=== PATIENT | male | born 1970 | race Caucasian/White ===

== ENCOUNTER 2019-04-18 15:55 | Emergency (ER) | payer OTHER, MEDICAID ==
[~2019-04-18] VITALS: Ht 165.1 cm; Wt 123.4 kg
[~2019-04-18 15:55] MED LIST: ASPI-404 PO; DICY20TA66 PO; FURO1TAB33; GLYB6TAB; LISI-711; MELA10TA PO; METO10TA3 PO; OMEP-337; PERCOT GT; POTA12PO2 PO; RANI150I IJ; TAMS0.4C36 PO
[2019-04-18] MEDS ORDERED: SODIUM CHLORIDE 0.9% 1,000 ML IV ONE ×2 (17:07)
[2019-04-18] MEDS ORDERED: InsuLIN REG 1unit/0.01ml Soln (100units/ml) SC ONE (17:15)
[2019-04-18 17:40] LABS: Basophils # (auto) 0.1 uL; Basophils % (auto) 1.1 % (0.0-2.0); Eosinophils # (auto) 0.2 uL; Eosinophils % (auto) 2.2 % (0.0-7.0); Hematocrit 47.6 % (41.0-53.0); Hemoglobin 15.8 g/dL (13.5-17.5); Lymphocytes # (auto) 2.4 uL; Lymphocytes % (auto) 24.5 % (10.0-50.0); Mean Corpuscular Hemoglobin 30.5 pg (28.0-32.0); Mean Corpuscular Hgb Conc. 33.2 g/dL (32.0-36.0); Mean Corpuscular Volume 91.8 fL (80.0-100.0); Monocytes # (auto) 0.7 uL; Monocytes % (auto) 6.8 % (0.0-12.0); Neutrophils # (auto) 6.4 uL; Neutrophils % (auto) 65.4 % (37.0-80.0); Nucleated Red Blood Cells % 0.1 %; Platelet Count (auto) 258 10^3/uL (140-450); Red Blood Cells 5.18 10^6/uL (4.5-5.90); White Blood Cell 9.8 10^3/uL (4.4-10.8)
[2019-04-18 17:57] LABS: INR 0.96 (0.9-1.15); Partial Thromboplastin Time 23.2 sec (23.64-32.05)
[2019-04-18 17:58] LABS: Albumin 3.9 g/dL (3.4-5.0); Anion Gap 11 (5-15); Blood Urea Nitrogen 17 mg/dL (7-18); Calcium 9.6 mg/dL (8.5-10.1); Carbon Dioxide 24 mmol/L (21-32); Chloride 102 mmol/L (98-107); Glucose 288 mg/dL (74-106); Lipase 132 U/L (73-393); Potassium 4.3 mmol/L (3.5-5.1); Sodium 137 mmol/L (136-145)
[2019-04-18 18:03] LABS: Alanine Aminotransferase 59 U/L (16-61); Alkaline Phosphatase 98 U/L (45-117); Aspartate Aminotransferase 35 U/L (15-37); Bilirubin, Total 0.6 mg/dL (0.2-1.0); GFR African American 89 mL/min; GFR Non-African American 73 mL/min; Total Protein 7.7 g/dL (6.4-8.2)
[2019-04-18 22:30] VITALS: BP 125/90
== END 2019-04-18 23:43 | disposition home or self-care (01) ==
LOC: ER 15:55
DX: E11.65 Type 2 diabetes mellitus with hyperglycemia (principal); N20.0 Calculus of kidney; I10 Essential (primary) hypertension; Z88.6 Allergy status to analgesic agent; Z79.899 Other long term (current) drug therapy
CPT/HCPCS: 36415; 71045; 74176; 80053; 82962; 83690; 84484; 85025; 85610; 85730; 96360; 96372; 99284; J1815; J7030

== ENCOUNTER 2022-04-07 21:25 | Emergency (ER) | payer MEDICAID, OTHER ==
[~2022-04-07] VITALS: Ht 165.1 cm; Wt 111.5 kg
[~2022-04-07 21:25] MED LIST changes: -ASPI-404 PO; +ASPI-543 PO; +ATOR40TA52 PO; -DICY20TA66 PO; -FURO1TAB33; -GLYB6TAB; +INSU100I43 SC; -LISI-711; +LISI40TA11 PO; -MELA10TA PO; -METO10TA3 PO; -OMEP-337; +PANC3000 PO; +PANT40TA2 PO; -PERCOT GT; -POTA12PO2 PO; -RANI150I IJ; -TAMS0.4C36 PO
[2022-04-08 01:46] VITALS: BP 141/74
== END 2022-04-08 01:46 | disposition home or self-care (01) ==
LOC: ER 21:25
DX: M25.562 Pain in left knee (principal); E11.9 Type 2 diabetes mellitus without complications; I10 Essential (primary) hypertension; Z90.89 Acquired absence of other organs; Z79.4 Long term (current) use of insulin; Z79.899 Other long term (current) drug therapy; Z88.6 Allergy status to analgesic agent
CPT/HCPCS: 73560

== ENCOUNTER 2022-06-25 01:03 | Emergency (ER) | payer OTHER, BC ==
[~2022-06-25] VITALS: Ht 165.1 cm; Wt 113.7 kg
[2022-06-25] MEDS ORDERED: ONDA-144 PO (04:49)
[2022-06-25] MEDS ORDERED: HYDR-4902 PO (04:49)
[2022-06-25 05:01] VITALS: BP 131/75
== END 2022-06-25 05:01 | disposition home or self-care (01) ==
LOC: ER 01:03
DX: M25.512 Pain in left shoulder (principal); I10 Essential (primary) hypertension; E11.9 Type 2 diabetes mellitus without complications; Z79.82 Long term (current) use of aspirin; Z79.4 Long term (current) use of insulin; Z79.899 Other long term (current) drug therapy; Z88.8 Allergy status to other drugs, medicaments and biological substances

== ENCOUNTER → 2022-12-30 | Outpatient (CLI) | payer OTHER ==
[~2022-12-30] MED LIST changes: +HYDR-4902 PO; -LISI40TA11 PO; +LISI40TA16 PO; +ONDA-144 PO
[2022-12-30 11:14] LABS: Basophils # (auto) 0 10 ^3/uL (0-0.2); Basophils % (auto) 0.3 % (0.0-2.0); Eosinophils # (auto) 0.2 10 ^3/uL (0-0.8); Hematocrit 43.1 % (41.0-53.0); Hemoglobin 14.5 g/dL (13.5-17.5); Lymphocytes # (auto) 1.7 10 ^3/uL (0.4-5.4); Mean Corpuscular Hemoglobin 30.3 pg (28.0-32.0); Mean Corpuscular Hgb Conc. 33.6 g/dL (32.0-36.0); Mean Corpuscular Volume 90.2 fL (80.0-100.0); Monocytes # (auto) 0.7 10 ^3/uL (0-1.3); Monocytes % (auto) 8.9 % (0.0-12.0); Neutrophils # (auto) 5.3 10 ^3/uL (1.6-8.6); Neutrophils % (auto) 66.8 % (37.0-80.0); Nucleated Red Blood Cells % 0.1 %; Red Blood Cells 4.78 10^6/uL (4.5-5.90); Red Cell Distribution Width 14.5 % (11.8-14.3); White Blood Cell 7.9 10^3/uL (4.4-10.8)
[2022-12-30 11:53] LABS: Free T4 (Free Thyroxine) 0.86 ng/dL (0.89-1.76)
[2022-12-30 11:54] LABS: Prostate Specific Antigen 0.4 ng/mL (0.0-4.0)
[2022-12-30 12:19] LABS: Potassium 3.9 mmol/L (3.5-5.1)
[2022-12-30 12:26] LABS: Albumin 4.1 g/dL (3.4-5.0); Calcium 8.7 mg/dL (8.5-10.1)
[2022-12-30 12:28] LABS: Bilirubin, Total 0.9 mg/dL (0.2-1.0); Total Protein 7.3 g/dL (6.4-8.2)
[2022-12-30 16:03] LABS: Urine Bacteria NONE SEEN /hpf (None Seen); Urine Blood Negative /uL (Negative); Urine Mucus FEW (None Seen); Urine Specific Gravity 1.034 (1.001-1.035); Urine WBC 1 /hpf (0 - 3)
[2022-12-31 14:55] LABS: Micro Albumin 18.5 mg/L (0-30.0)
== END | disposition home or self-care (01) ==
LOC: LAB 10:31
PROVIDERS: ATTEND Internal Medicine
DX: I70.0 Atherosclerosis of aorta (principal); I10 Essential (primary) hypertension; E11.69 Type 2 diabetes mellitus with other specified complication
CPT/HCPCS: 36415; 80053; 80061; 81001; 82043; 82306; 82570; 83036; 84153; 84439; 84443; 85025

== ENCOUNTER → 2023-01-07 | Outpatient (CLI) | payer OTHER | END | disposition home or self-care (01) | LOC: LAB 15:42 | PROVIDERS: ATTEND Internal Medicine | DX: E11.69 Type 2 diabetes mellitus with other specified complication (principal); I10 Essential (primary) hypertension; I70.0 Atherosclerosis of aorta | CPT/HCPCS: 82274 ==

== ENCOUNTER → 2023-05-28 | Outpatient (CLI) | payer OTHER | END | disposition home or self-care (01) | LOC: LAB 16:05 | PROVIDERS: ATTEND Family Medicine | DX: L82.1 Other seborrheic keratosis (principal) | CPT/HCPCS: 88302 ==

== ENCOUNTER 2023-08-03 03:12 | Emergency (ER) | payer OTHER ==
[~2023-08-03] VITALS: Ht 165.1 cm; Wt 113.0 kg
[2023-08-03] MEDS: ALBUTEROL SULF 2.5 MG/0.5ML(0.5%) NEB SOLN NEB ONE (03:49)
[2023-08-03] MEDS: IPRATROPIUM BROM 0.5 MG/2.5ML INH SOL NEB ONE (03:49)
[2023-08-03 04:08] LABS: Basophils # (auto) 0 10 ^3/uL (0-0.2); Basophils % (auto) 0.5 % (0.0-2.0); Eosinophils # (auto) 0.3 10 ^3/uL (0-0.8); Eosinophils % (auto) 3.1 % (0.0-7.0); Hematocrit 41.7 % (41.0-53.0); Hemoglobin 13.9 g/dL (13.5-17.5); Lymphocytes % (auto) 24.9 % (10.0-50.0); Mean Corpuscular Hemoglobin 29.7 pg (28.0-32.0); Mean Corpuscular Hgb Conc. 33.4 g/dL (32.0-36.0); Mean Corpuscular Volume 88.9 fL (80.0-100.0); Monocytes # (auto) 0.6 10 ^3/uL (0-1.3); Monocytes % (auto) 7.8 % (0.0-12.0); Neutrophils # (auto) 5.2 10 ^3/uL (1.6-8.6); Neutrophils % (auto) 63.7 % (37.0-80.0); Nucleated Red Blood Cells % 0.1 %; Red Blood Cells 4.69 10^6/uL (4.5-5.90); White Blood Cell 8.2 10^3/uL (4.4-10.8)
[2023-08-03 04:19] LABS: Chloride 104 mmol/L (98-107); Sodium 138 mmol/L (136-145)
[2023-08-03 04:20] LABS: Anion Gap 8 (5-15); Calcium 9.3 mg/dL (8.7-10.4); Carbon Dioxide 26 mmol/L (20-30)
[2023-08-03 04:25] LABS: BUN/Creatinine Ratio 7.4 (10.0-20.0); Blood Urea Nitrogen 6 mg/dL (9-23); Glucose 266 mg/dL (74-106)
[2023-08-03] MEDS ORDERED: PRED20TA2 PO (05:53)
[2023-08-03] MEDS ORDERED: ALBU0.084 NEB (05:53)
[2023-08-03] MEDS ORDERED: ALBU108A5 IN (05:53)
[2023-08-03 06:00] VITALS: BP 123/89; PULSE 74; RESP 14; TEMP 98.1; O2SAT 96
== END 2023-08-03 06:17 | disposition home or self-care (01) ==
LOC: ER 03:12
DX: R06.00 Dyspnea, unspecified (principal); R05.9 Cough, unspecified; I10 Essential (primary) hypertension; E11.9 Type 2 diabetes mellitus without complications; Z88.8 Allergy status to other drugs, medicaments and biological substances; Z79.899 Other long term (current) drug therapy
CPT/HCPCS: 36415; 71045; 80048; 83880; 84484; 85025; 93005; 94640; 99285; J7644

== ENCOUNTER → 2023-12-16 | Outpatient (CLI) | payer OTHER ==
[~2023-12-16] MED LIST changes: +ALBU0.084 NEB; +ALBU108A5 IN; +PRED20TA2 PO
[2023-12-16 07:24] LABS: Urine Bacteria None Seen /hpf (None Seen)
[2023-12-16 07:27] LABS: Basophils # (auto) 0.1 10 ^3/uL (0-0.2); Basophils % (auto) 0.8 % (0.0-2.0); Eosinophils # (auto) 0.2 10 ^3/uL (0-0.8); Hematocrit 46.6 % (41.0-53.0); Hemoglobin 15.6 g/dL (13.5-17.5); Lymphocytes # (auto) 1.8 10 ^3/uL (0.4-5.4); Lymphocytes % (auto) 19.7 % (10.0-50.0); Mean Corpuscular Hemoglobin 29.9 pg (28.0-32.0); Mean Corpuscular Hgb Conc. 33.4 g/dL (32.0-36.0); Mean Corpuscular Volume 89.4 fL (80.0-100.0); Monocytes # (auto) 0.7 10 ^3/uL (0-1.3); Monocytes % (auto) 7.5 % (0.0-12.0); Neutrophils # (auto) 6.2 10 ^3/uL (1.6-8.6); Nucleated Red Blood Cells % 0.1 %; Red Blood Cells 5.21 10^6/uL (4.5-5.90); Red Cell Distribution Width 13.5 % (11.8-14.3); White Blood Cell 8.9 10^3/uL (4.4-10.8)
[2023-12-16 07:45] LABS: Urine Blood Negative /uL (Negative); Urine Clarity Clear (Clear); Urine Color Light-Yellow (Yellow); Urine Protein, UAD Negative (Negative); Urine Specific Gravity 1.035 (1.001-1.035); Urine Urobilinogen Normal (Negative); Urine WBC 1 /hpf (0 - 3)
[2023-12-16 07:55] LABS: Alanine Aminotransferase 53 U/L (7-40); Albumin 4.7 g/dL (3.2-4.8); Alkaline Phosphatase 82 U/L (46-116); Anion Gap 5 (5-15); Aspartate Aminotransferase 28 U/L (13-40); BUN/Creatinine Ratio 9.8 (10.0-20.0); Blood Urea Nitrogen 9 mg/dL (9-23); Calcium 9.6 mg/dL (8.5-10.1); Carbon Dioxide 28 mmol/L (20-30); Chloride 105 mmol/L (98-107); Glucose 236 mg/dL (74-106); LDL Cholesterol 39 mg/dL (< 100); Potassium 4.3 mmol/L (3.5-5.1); Sodium 138 mmol/L (136-145); Triglycerides 236 mg/dL (< 150)
[2023-12-16 07:56] LABS: Bilirubin, Total 0.8 mg/dL (0.2-1.0); Cholesterol 145 mg/dL (< 200); HDL Cholesterol 34 mg/dL (40-59); Total Protein 6.8 g/dL (5.7-8.2)
[2023-12-16 08:57] LABS: Prostate Specific Antigen 0.27 ng/mL (0.0-4.0)
[2023-12-16 09:02] LABS: Free T4 (Free Thyroxine) 1.12 ng/dL (0.89-1.76)
== END | disposition home or self-care (01) ==
LOC: LAB 07:08
PROVIDERS: ATTEND Internal Medicine
DX: Z12.5 Encounter for screening for malignant neoplasm of prostate (principal); E11.65 Type 2 diabetes mellitus with hyperglycemia; Z11.59 Encounter for screening for other viral diseases
CPT/HCPCS: 36415; 80053; 80061; 81001; 83036; 84153; 84439; 84443; 85025; 86803

== ENCOUNTER → 2024-01-31 | Outpatient (CLI) | payer OTHER ==
[2024-01-31 07:54] LABS: Alanine Aminotransferase 39 U/L (7-40); Albumin 4.4 g/dL (3.2-4.8); Alkaline Phosphatase 77 U/L (46-116); Anion Gap 7 (5-15); Aspartate Aminotransferase 14 U/L (13-40); Blood Urea Nitrogen 9 mg/dL (9-23); Calcium 9.5 mg/dL (8.7-10.4); Carbon Dioxide 25 mmol/L (20-30); Chloride 107 mmol/L (98-107); Glucose 122 mg/dL (74-106); Potassium 3.8 mmol/L (3.5-5.1); Sodium 139 mmol/L (136-145)
[2024-01-31 07:55] LABS: Bilirubin, Total 0.8 mg/dL (0.2-1.0); Total Protein 6.3 g/dL (5.7-8.2)
== END | disposition home or self-care (01) ==
LOC: LAB 07:06
PROVIDERS: ATTEND Internal Medicine
DX: I10 Essential (primary) hypertension (principal); E11.65 Type 2 diabetes mellitus with hyperglycemia; E66.01 Morbid (severe) obesity due to excess calories
CPT/HCPCS: 36415; 80053

== ENCOUNTER → 2024-05-29 | Outpatient (CLI) | payer OTHER ==
[2024-05-29 09:58] LABS: Creatinine, Urine 177.64 mg/dL (30.0-125.0)
[2024-05-29 10:07] LABS: Alanine Aminotransferase 26 U/L (7-40); Albumin 4.7 g/dL (3.2-4.8); Alkaline Phosphatase 85 U/L (46-116); Anion Gap 11 (5-15); Aspartate Aminotransferase 11 U/L (13-40); BUN/Creatinine Ratio 12.8 (10.0-20.0); Bilirubin, Total 0.7 mg/dL (0.2-1.0); Blood Urea Nitrogen 11 mg/dL (9-23); Calcium 10.2 mg/dL (8.7-10.4); Carbon Dioxide 27 mmol/L (20-31); Chloride 104 mmol/L (98-107); Cholesterol 107 mg/dL (< 200); Glucose 117 mg/dL (74-106); HDL Cholesterol 38 mg/dL (40-59); LDL Cholesterol 30 mg/dL (< 100); Potassium 3.9 mmol/L (3.5-5.1); Sodium 142 mmol/L (136-145); Total Protein 6.8 g/dL (5.7-8.2); Triglycerides 175 mg/dL (< 150)
== END | disposition home or self-care (01) ==
LOC: LAB 08:41
PROVIDERS: ATTEND Internal Medicine
DX: E78.2 Mixed hyperlipidemia (principal); E11.69 Type 2 diabetes mellitus with other specified complication
CPT/HCPCS: 36415; 80053; 80061; 82043; 82570; 83036

== ENCOUNTER 2024-10-19 21:36 | Inpatient (IN) | payer OTHER ==
[~2024-10-19] VITALS: Ht 165.1 cm; Wt 117.1 kg
--- NOTE | 2024-10-19 21:52 | ED.PDOC ---
GI ASSESSMENT HPI Comments 57-year-old male with a history of hypertension, diabetes, dyslipidemia, pancreatitis and chronic pain brought in by family for evaluation of upper abdominal pain for the last 3 days, associated with nausea, vomiting and copious watery diarrhea. He states he is currently not tolerating p.o. fluids. He denies any fever, chest pain, shortness a breath or urinary symptoms. He denies recent use of antibiotics. Time Seen by MD: 21:45 Primary Care Provider: ELDA Reviewed Notes: Nurses Notes, Medications, Allergies Allergies: Coded Allergies: Cephalexin (Verified Allergy, 01/14/12) Home Meds Active Scripts Prednisone (Prednisone) 20 Mg Tab, 60 MG PO DAILY for 7 Days, #21 MG Prov:GONZÁLEZ REAL DO 08/03/23 Albuterol Sulfate (Albuterol Sulfate Hfa) 108 Mcg/Act Aer, 108 MCG IN Q2HP PRN, #1 AER Prov:GONZÁLEZ REAL DO 08/03/23 Albuterol Sulfate (Albuterol Sulfate) 0.083 % Neb, 1 VIAL NEB Q4HPRN PRN, #50 VIAL Prov:GONZÁLEZ REAL DO 08/03/23 Ondansetron (Zofran) 4 Mg Tab, 1 TAB PO Q8HR PRN, #10 TAB 0 Refills Prov:LIAT CAGE 06/25/22 Hydrocodone-Acetaminophen (Hydrocodone Bitartrate/AC 5-325 mg) 1 Tab Tab, 1 TAB PO Q4HPRN PRN, #10 TAB 0 Refills Prov:LIAT CAGE 06/25/22 Reported Medications Insulin Lispro (Insulin Lispro) 100 Unit/Ml Inj, 100 UNIT SC TID, INJ 06/10/19 Pantoprazole Sodium Sesquihydr (Protonix) 40 Mg Tab, 40 MG PO DAILY, #30 TAB 06/10/19 Atorvastatin Calcium (ATORVASTATIN CALCIUM) 40 Mg Tab, 40 MG PO DAILY, TAB 06/10/19 Lisinopril (Lisinopril) 40 Mg Tab, 40 MG PO BID for 30 Days, MG 06/10/19 Pancreatic Enzymes (CREON) 3,000 Unit Cap, 28565 UNIT PO TIDWMEALS, CAP 06/10/19 Aspirin (Aspir-Low) 81 Mg Tab, 81 MG PO DAILY for 30 Days, MG 12/22/13 Information Source: Patient Mode of Arrival: Ambulatory Timing: Days Duration: Since onset, Days Prehospital treatment: None Quality: Aching Vomitus: Bilious Stool: Loose Severity: Moderate Recent: None Recent Hx of: Diabetes Pain Location: Epigastric Associated sign and symptoms: Nausea, Vomiting, Diarrhea, Abdominal Pain Past Medical History PAST MEDICAL HISTORY: DM, High Lipids, HTN Past Medical History (Other): Pancreatitis, chronic back pain Surgical History (Other): Lower Back Sx Family History Family History: Reviewed,noncontributory to illness, Unknown Social History Smoker: Non-Smoker Alcohol: Denies ETOH Use Drugs: Denies Drug Use Lives In: Home Constitutional: denies: chills, diaphoresis, fatigue, fever, malaise, sweats, weakness, others EENTM: denies: blurred vision, double vision, ear bleeding, ear discharge, ear drainage, ear pain, ear ringing, eye pain, eye redness, hearing loss, mouth pain, mouth swelling, nasal discharge, nose bleeding, nose congestion, nose pain, photophobia, tearing, throat pain, throat swelling, voice changes, others Respiratory: denies: cough, hemoptysis, orthopnea, SOB at rest, shortness of breath, SOB with excertion, stridor, wheezing, others Cardiovascular: denies: chest pain, dizzy spells, diaphoresis, Dyspnea on exertion, edema, irregular heart beat, left arm pain, lightheadedness, palpitations, PND, syncope, others Gastrointestinal: reports: abdominal pain, diarrhea, nausea, vomiting; denies: abdomen distended, blood streaked bowels, constipated, dysphagia, difficulty swallowing, hematemesis, melena, poor appetite, poor fluid intake, rectal bleeding, rectal pain, others Genitourinary: denies: burning, dysuria, flank pain, frequency, hematuria, incontinence, penile discharge, penile sore, pain, testicle pain, testicle swell ing, urgency, others Neurological: denies: dizziness, fainting, headache, left sided numbness, left sided weakness, numbness, paresthesia, pre-existing deficit, right sided numbness, right sided weakness, seizure, speech problems, tingling, tremors, weakness, others Musculoskeletal: denies: back pain, gout, joint pain, joint swelling, muscle pain, muscle stiffness, neck pain, others Integumetry: denies: bruises, change in color, change in hair/nails, dryness, laceration, lesions, lumps, rash, wounds, others Allergic/Immunocompromised: denies: Difficulty Healing, Frequent Infections, Hives, Itching, others Hematologic/Lymphatic: denies: anemia, blood clots, easy bleeding, easy bruising, swollen glands, others Endocrine: denies: excessive hunger, excessive sweating, excessive thirst, excessive urination, flushing, intolerance to cold, intolerance to heat, unexplained weight gain, unexplained weight loss, others Psychiatric: denies: anxiety, bipolar disorder, depression, hopeless, panic disorder, schizophrenia, sleepless, suicidal, others All Other Systems: Reviewed and Negative Physical Exam General Appearance: Moderate Distress, Obese HEENT: Other (Pupils and face symmetric. Moist mucous membranes.) Neck: Full Range of Motion, Normal Inspection Respiratory: Lungs Clear, No Accessory Muscle Use, No Respiratory Distress, Normal Breath Sounds Cardiovascular: No Edema, No JVD, Regular Rate/Rhythm Breast Exam: Deferred Gastrointestinal: Epigastric, LUQ, RUQ, Soft, Tenderness Genitalia: Deferred Pelvic: Deferred Rectal: Deferred Extremities: Normal inspection, Normal range of motion, Non-tender, No pedal edema Neurologic: Alert (Oriented x4), Normal Affect, Normal Mood, Other (Ambulatory without difficulty) Cerebellar Function: NOT DONE Reflexes: NOT DONE Skin: Dry, Normal Color, Warm Lymphatic: NOT DONE Was a procedure done? Was a procedure done?: No GI differential Dx Differential Diagnosis: Cholangitis, Cholecystitis, Diverticular disease, Esophagitis, Gastritis/PUD, Gastroenteritis, Inflammatory BD, Ischemic Bowel, Pancreatitis, UTI, Dehydration, Diabetes/ DKA, Electrolyte Imbalance, Food Poisoning, Bacterial, Viral, Hypovolemia, Stress Ulcer X-Ray, Labs, Meds, VS Vital Signs Date Time Temp Pulse Resp B/P (MAP) Pulse Ox O2 Delivery O2 Flow Rate FiO2 10/19/24 22:39 74 20 96 Room Air* 0 21 10/19/24 22:39 98.9 74 20 147/97 (114) 96 98.9 10/19/24 22:37 74 20 147/97 10/19/24 21:47 98.9 74 20 147/97 (114) 96 98.9 Lab Test 10/19/24 21:52 Range/Units White Blood Count 9.3 4.4-10.8 10^3/uL Red Blood Count 5.04 4.5-5.90 10^6/uL Hemoglobin 15.5 13.5-17.5 g/dL Hematocrit 44.6 41.0-53.0 % Mean Corpuscular Volume 88.4 80.0-100.0 fL Mean Corpuscular Hemoglobin 30.7 28.0-32.0 pg Mean Corpuscular Hemoglobin Concent 34.7 32.0-36.0 g/dL Red Cell Distribution Width 13.2 11.8-14.3 % Platelet Count 257 140-450 10^3/uL Mean Platelet Volume 7.5 6.9-10.8 fL Neutrophils (%) (Auto) 64.7 37.0-80.0 % Lymphocytes (%) (Auto) 25.8 10.0-50.0 % Monocytes (%) (Auto) 6.5 0.0-12.0 % Eosinophils (%) (Auto) 2.1 0.0-7.0 % Basophils (%) (Auto) 0.9 0.0-2.0 % Neutrophils # (Auto) 6.0 1.6-8.6 10 ^3/uL Lymphocytes # (Auto) 2.4 0.4-5.4 10 ^3/uL Monocytes # (Auto) 0.6 0-1.3 10 ^3/uL Eosinophils # (Auto) 0.2 0-0.8 10 ^3/uL Basophils # (Auto) 0.1 0-0.2 10 ^3/uL Nucleated Red Blood Cells 0.1 % Sodium Level 141 136-145 mmol/L Potassium Level 3.9 3.5-5.1 mmol/L Chloride Level 105 98-107 mmol/L Carbon Dioxide Level 27 20-31 mmol/L Anion Gap 9 5-15 Blood Urea Nitrogen 7 L 9-23 mg/dL Creatinine 0.72 0.700-1.30 mg/dL Glomerular Filtration Rate Calc 108 >90 mL/min BUN/Creatinine Ratio 9.7 L 10.0-20.0 Serum Glucose 126 H 74-106 mg/dL Lactic Acid Level 1.2 0.4-2.0 mmol/L Calcium Level 10.0 8.7-10.4 mg/dL Total Bilirubin 0.5 0.2-1.0 mg/dL Aspartate Amino Transferase (AST) 21 13-40 U/L Alanine Aminotransferase (ALT) 58 H 7-40 U/L Alkaline Phosphatase 81 46-116 U/L Troponin I High Sensitivity 4 </=54 ng/L Total Protein 6.8 5.7-8.2 g/dL Albumin 4.5 3.2-4.8 g/dL Lipase 331 H 12-53 U/L Current Medications Medications (Trade) Dose Ordered Sig/Dulce Route Start Time Stop Time Status Last Admin Sodium Chloride 2,000 ml @ 1,000 mls/hr Q2H ONCE IV 10/19/24 22:00 10/19/24 23:59 10/19/24 22:37 Ondansetron HCl (Zofran) 4 mg ONCE ONCE IV 10/19/24 22:00 10/19/24 22:01 DC 10/19/24 22:35 Pantoprazole Sodium (Protonix) 40 mg ONCE ONCE IV 10/19/24 22:00 10/19/24 22:01 DC 10/19/24 22:35 Morphine Sulfate 4 mg ONCE ONCE IV 10/19/24 22:00 10/19/24 22:01 DC 10/19/24 22:37 X-Ray, Labs, Meds, VS Comment 54-year-old male with a history of hypertension, diabetes, dyslipidemia and pancreatitis brought in by family complaining of abdominal pain, nausea, vomiting and diarrhea Vitals remarkable for BP 147/97 Exam remarkable for epigastric and bilateral upper quadrant tenderness to palpation Rhythm strip independently interpreted by me: Sinus rhythm, rate 74, no ectopy. CT abdomen and pelvis unremarkable CBC normal, CMP unremarkable, lipase 331, troponin negative, UA pending Patient treated with the following in the ED: 1 L 0.9 normal saline IV bolus, morphine 4 mg IV, Zofran 4 mg IV, Protonix 40 mg IV, Dilaudid 1 mg IV On re-evaluation, patient states pain has not improved with morphine. IV Dilaudid was ordered. Vitals were stable. Plan is to admit the patient for pain and emesis control and GI evaluation. Time of 1ST Reevaluation: 22:15 Reevaluation 1ST: Unchanged Patient Education/Counseling: Diagnosis, Treatment, Prognosis Family Education/Counseling: No Family Present Departure 1 Departure Time of Disposition: 23:01 Impression: Primary Impression: Acute pancreatitis Qualified Codes: K85.90 - Acute pancreatitis without necrosis or infection, unspecified Disposition: 09 ADMITTED INPATIENT Admit to: Med Surg Condition: Guarded Critical Care Note Critical Care Time?: No Stability Stability form required: No Heart Score Heart Score: Heart Score Response (Comments) Value History N/A 0 EKG N/A 0 Age N/A 0 Risk Factors N/A 0 Troponin N/A 0 Total 0 I personally scribed for MINNA ELKINS MD ([email or web address]) on 10/19/24 at 21:52. Electronically submitted by Cassius Scott ([email or web address]). MINNA ELKINS MD Oct 19, 2024 21:52
[2024-10-19 22:02] LABS: Basophils # (auto) 0.1 10 ^3/uL (0-0.2); Basophils % (auto) 0.9 % (0.0-2.0); Eosinophils # (auto) 0.2 10 ^3/uL (0-0.8); Eosinophils % (auto) 2.1 % (0.0-7.0); Hematocrit 44.6 % (41.0-53.0); Hemoglobin 15.5 g/dL (13.5-17.5); Lymphocytes # (auto) 2.4 10 ^3/uL (0.4-5.4); Lymphocytes % (auto) 25.8 % (10.0-50.0); Mean Corpuscular Hemoglobin 30.7 pg (28.0-32.0); Mean Corpuscular Hgb Conc. 34.7 g/dL (32.0-36.0); Mean Corpuscular Volume 88.4 fL (80.0-100.0); Monocytes # (auto) 0.6 10 ^3/uL (0-1.3); Monocytes % (auto) 6.5 % (0.0-12.0); Neutrophils % (auto) 64.7 % (37.0-80.0); Nucleated Red Blood Cells % 0.1 %; Platelet Count (auto) 257 10^3/uL (140-450); Red Blood Cells 5.04 10^6/uL (4.5-5.90); Red Cell Distribution Width 13.2 % (11.8-14.3); White Blood Cell 9.3 10^3/uL (4.4-10.8)
[2024-10-19 22:21] LABS: Albumin 4.5 g/dL (3.2-4.8); Alkaline Phosphatase 81 U/L (46-116); Anion Gap 9 (5-15); Aspartate Aminotransferase 21 U/L (13-40); BUN/Creatinine Ratio 9.7 (10.0-20.0); Carbon Dioxide 27 mmol/L (20-31); Chloride 105 mmol/L (98-107); Potassium 3.9 mmol/L (3.5-5.1); Sodium 141 mmol/L (136-145); Total Protein 6.8 g/dL (5.7-8.2)
[2024-10-19 22:22] LABS: Bilirubin, Total 0.5 mg/dL (0.2-1.0)
--- NOTE | 2024-10-19 22:31 | DVH ---
Exam: CT CT AB PEL WO CON-NO ORAL OR IV History: upper/mid abd pain, n/v/d Comparison Study: None Technique: Multidetector spiral CT of the abdomen was performed from lung bases to pubic symphysis. Imaging was performed without IV contrast. Axial, coronal and sagittal multiplanar reformats were ob tained from the axial data set by the technologist. Radiation Dose : 1. Abdomen/Pelvis: CTDIvol mGy, DLP mGy*cm. Findings: Evaluation of solid organs is limited due to lack of intravenous contrast use. Lung Bases: No abnormality demonstrated. Liver: Liver is normal in size. No focal lesions noted. Gallbladder and Biliary Tree: No abnormality demonstrated. Spleen: No abnormality demonstrated. Pancreas: No abnormality demonstrated. Adrenal Glands: No abnormality demonstrated. Kidneys: Two small nonobstructing calculi noted in the lower pole of the right kidney. Probable small bilateral renal cysts. No hydroureteronephrosis. Bladder: Grossly unremarkable for degree of distention. Bowel: Stomach appears grossly unremarkable. No abnormally dilated or thick-walled loops of large or small bowel noted. Appendix appears unremarkable. Ascites: Absent Lymphadenopathy: No evidence of lymphadenopathy. Abdominal Wall and Mesentery: Unremarkable. Vasculature: Unremarkable given lack of intravenous contrast. Pelvic Organs: Unremarkable Musculoskeletal: No bony lesions or fracture. S/p laminotomies at L4 and L5 and interbody fusion at L4-L5 and L5-S1. No spinal canal stenosis. IMPRESSION: No acute abdominal or pelvic findings. Radiation optimization: All CT scans at this facility use at least one of these dose optimization kyra hniques: automated exposure control mA and/or kV adjustment per patient size (includes targeted exam s where dose is matched to clinical indication) or iterative reconstruction.
[2024-10-19] MEDS: PANTOPRAZOLE 40 MG/10 ML VIAL INJ IV ONE (22:35)
[2024-10-19] MEDS: ONDANSETRON HCL 4 MG/2 ML VIAL IV ONE (22:35)
[2024-10-19] MEDS: MORPHINE SULFATE 4 MG/ML SYR/VIAL IV ONE (22:37)
[2024-10-19] MEDS: SODIUM CHLORIDE 0.9% 2,000 ML IV ONE (22:37)
[2024-10-19 22:39] VITALS: PULSE 74; RESP 20; O2SAT 96
[2024-10-19 22:58] LABS: Alanine Aminotransferase 58 U/L (7-40); Blood Urea Nitrogen 7 mg/dL (9-23); Glucose 126 mg/dL (74-106); Lipase 331 U/L (12-53)
[2024-10-20] VITALS (9 sets, daily range): BP systolic 115–145; BP diastolic 74–88; PULSE 53–64; RESP 15–20; TEMP 97.8–98.7; O2SAT 95–97
[2024-10-20] MEDS ORDERED: DEXTROSE (50%) 50ML SYRG IV PRN (00:15)
--- NOTE | 2024-10-20 00:27 | DVHHPRES ---
History of Present Illness Resident Creating Document: VASU LUNDBERG RESIDENT History of Present Illness Mr Rajiv year old male with past medical history of chronic pancreatitis secondary to medication (Viberzi/eluxadoline) on Creon, Diabetes mellitus type 2 on insulin, disc herniation, right shoulder pain, and hypertension presented to the ER with a chief complaint of abdominal pain, and diarrhea for the past 10 days. Patient was seen in the urgent care 10 days back due to right shoulder pain, later developed nausea and vomiting with fever and chills at home. Patient's was also experiencing the same symptoms. Patient got better in a couple of days and later started developing abdominal pain which is diffuse along with diarrhea which is watery, foamy and floaty with rotten smell, he is having more than 10 episodes of diarrhea in a day. Patient can not keep solids or liquids food down. Associated symptoms include nausea. Denies any blood in vomitus or stool. Reports compliance with Creon. Past medical history:chronic pancreatitis secondary to medication (Viberzi/eluxadoline) on Creon, Diabetes mellitus type 2 on insulin, disc herniation, right shoulder pain, and hypertension Home medications: Creon, lisinopril 40 mg b.i.d., atorvastatin Social history: Lives with . Quit smoking more than 15 years back, denies drinking or drug use PCP Dr. Hou Patient seen and examined in the ER, present. Family History: None Smoke: Quit ALCOHOL: none Drugs: None Lives: with Family Review of Systems Constitutional: Yes: Fever, Chills, Weakness Respiratory: Cough Gastrointestinal: Nausea, Vomiting, Abdominal Pain, Diarrhea Musculoskeletal: neck pain, shoulder pain Allergies: Coded Allergies: Cephalexin (Verified Allergy, 01/14/12) Exam Vital Signs Vital Signs Date Time Temp Pulse Resp B/P (MAP) Pulse Ox O2 Delivery O2 Flow Rate FiO2 10/19/24 22:39 74 20 96 Room Air* 0 21 10/19/24 22:39 98.9 147/97 (114) 98.9 Exam Obese male patient lying in bed, in no acute distress General: Obese, afebrile, palor, mucosae are moist Cardiovascular: Regular S1 and S2. No murmurs, gallops or rubs. No JVD elevation. Bilateral 1+ pedal edema Respiratory: Normal B/L air entry on room air. Clear lung sounds on auscultation Abdomen: Soft, diffusely tender, bloated, normoactive bowel sounds, no rebound tenderness, no organomegaly, no masses Genitourinary: Deferred MSK/skin: Mobilizes 4 limbs. Skin is dry and warm. Can not abduct right arm more than 90. Neurological: No motor, no sensitive deficits, normal speech. Pupils are isocoric and reactive. Psych/Mental Status: A/Ox3 Labs/Xrays Labs Test 10/19/24 21:52 Range/Units White Blood Count 9.3 4.4-10.8 10^3/uL Red Blood Count 5.04 4.5-5.90 10^6/uL Hemoglobin 15.5 13.5-17.5 g/dL Hematocrit 44.6 41.0-53.0 % Mean Corpuscular Volume 88.4 80.0-100.0 fL Mean Corpuscular Hemoglobin 30.7 28.0-32.0 pg Mean Corpuscular Hemoglobin Concent 34.7 32.0-36.0 g/dL Red Cell Distribution Width 13.2 11.8-14.3 % Platelet Count 257 140-450 10^3/uL Mean Platelet Volume 7.5 6.9-10.8 fL Neutrophils (%) (Auto) 64.7 37.0-80.0 % Lymphocytes (%) (Auto) 25.8 10.0-50.0 % Monocytes (%) (Auto) 6.5 0.0-12.0 % Eosinophils (%) (Auto) 2.1 0.0-7.0 % Basophils (%) (Auto) 0.9 0.0-2.0 % Neutrophils # (Auto) 6.0 1.6-8.6 10 ^3/uL Lymphocytes # (Auto) 2.4 0.4-5.4 10 ^3/uL Monocytes # (Auto) 0.6 0-1.3 10 ^3/uL Eosinophils # (Auto) 0.2 0-0.8 10 ^3/uL Basophils # (Auto) 0.1 0-0.2 10 ^3/uL Nucleated Red Blood Cells 0.1 % Sodium Level 141 136-145 mmol/L Potassium Level 3.9 3.5-5.1 mmol/L Chloride Level 105 98-107 mmol/L Carbon Dioxide Level 27 20-31 mmol/L Anion Gap 9 5-15 Blood Urea Nitrogen 7 L 9-23 mg/dL Creatinine 0.72 0.700-1.30 mg/dL Glomerular Filtration Rate Calc 108 >90 mL/min BUN/Creatinine Ratio 9.7 L 10.0-20.0 Serum Glucose 126 H 74-106 mg/dL Lactic Acid Level 1.2 0.4-2.0 mmol/L Calcium Level 10.0 8.7-10.4 mg/dL Total Bilirubin 0.5 0.2-1.0 mg/dL Aspartate Amino Transferase (AST) 21 13-40 U/L Alanine Aminotransferase (ALT) 58 H 7-40 U/L Alkaline Phosphatase 81 46-116 U/L Troponin I High Sensitivity 4 </=54 ng/L Total Protein 6.8 5.7-8.2 g/dL Albumin 4.5 3.2-4.8 g/dL Lipase 331 H 12-53 U/L Assessment/Plan Assessment/Plan Intractable diarrhea secondary to Acute on chronic pancreatitis secondary to medication (Viberzi/eluxadoline) on Creon Irritable nausea and vomiting Probable right shoulder adhesive capsulitis Diabetes Mellitus type 2-hemoglobin A1c pending Cervical disc herniation Hypertension Morbid obesity Plan: NPO, IV fluids, bowel rest Follow up with Right upper quadrant ultrasound, triglyceride level and blood alcohol level IV Zofran q.4 PRN Follow up with the A1c levels, mild ISS and Lantus 20 units SC daily Follow up with right shoulder x-ray Continue home medication lisinopril 40 mg b.i.d. Lovenox 40 mg sc daily Protonix 40 mg daily Plan discussed with patient and in the ER in his all questions have been answered Goals of care discussed for more than 25 minutes, full code status Case discussed with Dr. Erazo Plan discussed with: Patient Date of Service: Oct 20, 2024 Billing Provider: PRABHJOT ERAZO MD Common Visit Codes: [id number] INP/OBS CARE (HIGH) VASU LUNDBERG RESIDENT Oct 20, 2024 00:27
[2024-10-20] MEDS: HYDROmorphone HCL 2 MG/ML VL/or syr IV ONE (01:00)
[2024-10-20] MEDS: SODIUM CHLORIDE 0.9% 1,000 ML IV ONE (02:21)
[2024-10-20] MEDS: MORPHINE SULFATE INJ 2 MG/ml SYRG IV PRN ×2 (03:43→16:23)
[2024-10-20] MEDS: ONDANSETRON HCL 4 MG/2 ML VIAL IV PRN ×2 (04:32→16:22)
[2024-10-20] MEDS: ACCU-CHEK COMFORT CURVE STRIP VI SCH (06:26)
[2024-10-20] MEDS: InsuLIN REG 1unit/0.01ml Soln (100units/ml) SC SCH (06:36)
[2024-10-20] MEDS ORDERED: CREON PO SCH (08:00)
[2024-10-20 09:05] LABS: Urine Bacteria None Seen /hpf (None Seen)
[2024-10-20 09:16] LABS: Urine Blood Negative /uL (Negative); Urine Clarity Clear (Clear); Urine Color Light-Yellow (Yellow); Urine Mucus FEW (None Seen); Urine Protein, UAD Negative (Negative); Urine Specific Gravity 1.017 (1.001-1.035); Urine Squamous Epithelial Cell None Seen /hpf (<5); Urine Urobilinogen Normal (Negative); Urine WBC 1 /HPF (0-3)
[2024-10-20 09:19] LABS: Opiate Scree,Urine Pos (NEGATIVE)
[2024-10-20 09:20] LABS: Amphetamine Screen, Urine Neg (NEGATIVE); Barbiturate Scree,Urine Neg (NEGATIVE); Benzodiazephine Screen, Urine Neg (NEGATIVE); Cannabinoid Screen, Urine Neg (NEGATIVE); Cocaine Screen, Urine Neg (NEGATIVE); Phencyclidine Screen, Urine Neg (NEGATIVE)
[2024-10-20 09:22] LABS: Basophils # (auto) 0 10 ^3/uL (0-0.2); Basophils % (auto) 0.5 % (0.0-2.0); Eosinophils # (auto) 0.2 10 ^3/uL (0-0.8); Eosinophils % (auto) 2.1 % (0.0-7.0); Hematocrit 41.2 % (41.0-53.0); Hemoglobin 14.1 g/dL (13.5-17.5); Lymphocytes # (auto) 1.5 10 ^3/uL (0.4-5.4); Lymphocytes % (auto) 20.2 % (10.0-50.0); Mean Corpuscular Hemoglobin 30.6 pg (28.0-32.0); Mean Corpuscular Hgb Conc. 34.2 g/dL (32.0-36.0); Mean Corpuscular Volume 89.4 fL (80.0-100.0); Monocytes # (auto) 0.5 10 ^3/uL (0-1.3); Monocytes % (auto) 7.2 % (0.0-12.0); Neutrophils # (auto) 5.3 10 ^3/uL (1.6-8.6); Nucleated Red Blood Cells % 0.1 %; Platelet Count (auto) 203 10^3/uL (140-450); Red Blood Cells 4.61 10^6/uL (4.5-5.90); White Blood Cell 7.6 10^3/uL (4.4-10.8)
[2024-10-20 09:34] LABS: INR 1.03 (0.9-1.15); Partial Thromboplastin Time 24.5 SEC (24.5-34.5); Prothrombin Time 10.9 sec (9.3-11.8)
[2024-10-20 09:45] LABS: Albumin 3.9 g/dL (3.2-4.8); Alkaline Phosphatase 65 U/L (46-116); Anion Gap 9 (5-15); Aspartate Aminotransferase 26 U/L (13-40); BUN/Creatinine Ratio 8.8 (10.0-20.0); CRP High Sensitivity 0.12 mg/dL (<1.0); Calcium 8.7 mg/dL (8.7-10.4); Carbon Dioxide 24 mmol/L (20-31); Cholesterol 158 mg/dL (< 200); Glucose 98 mg/dL (74-106); LDL Cholesterol 67 mg/dL (< 100); Magnesium 1.7 mg/dL (1.6-2.6); Potassium 3.6 mmol/L (3.5-5.1); Sodium 142 mmol/L (136-145); Total Protein 5.9 g/dL (5.7-8.2)
[2024-10-20 09:46] LABS: Alanine Aminotransferase 44 U/L (7-40); Bilirubin, Total 0.5 mg/dL (0.2-1.0); Blood Alcohol < 3.0 mg/dL (<10); Blood Urea Nitrogen 6 mg/dL (9-23); Chloride 109 mmol/L (98-107); HDL Cholesterol 32 mg/dL (40-59); Triglycerides 170 mg/dL (< 150)
[2024-10-20] MEDS: PANTOPRAZOLE 40 MG/10 ML VIAL INJ IV SCH (09:49)
[2024-10-20] MEDS: LISINOPRIL 20 MG TAB PO SCH (09:52)
[2024-10-20] MEDS: LACTATED RINGER'S 1,000 ML IV SCH ×2 (09:54→15:30)
[2024-10-20] MEDS: INSULIN LANTUS (GLARGINE) 1 /0.01ml (100units/ml) SC SCH (09:54)
[2024-10-20] MEDS: ASPirin-EC 81 mg tab PO SCH (09:55)
[2024-10-20] MEDS: ENOXAPARIN SOD 40 MG/0.4 ML SYRINGE SC SCH (09:55)
[2024-10-20 10:05] LABS: Erythrocyte Sedimentation Rate 6 mm/hr (0-20)
--- NOTE | 2024-10-20 11:35 | DVHPNRES ---
Progress Note Date Seen: Oct 20, 2024 Resident Creating Document: YOVANA STEVENSON RESIDENT Medical Necessity Reason Pt with a Central, PICC or Fol: No Subjective Review of Systems Mr Vance 54 year old male with past medical history of chronic pancreatitis secondary to medication (Viberzi/eluxadoline) on Creon, Diabetes mellitus type 2 on insulin, disc herniation, right shoulder pain, and hypertension presented to the ER with a chief complaint of abdominal pain, and diarrhea for the past 10 days. Patient was seen in the urgent care 10 days back due to right shoulder pain, later developed nausea and vomiting with fever and chills at home. Patient's was also experiencing the same symptoms. Patient got better in a couple of days and later started developing abdominal pain which is diffuse along with diarrhea which is watery, foamy and floaty with rotten smell, he is having more than 10 episodes of diarrhea in a day. Patient can not keep solids or liquids food down. Associated symptoms include nausea. Denies any blood in vomitus or stool. Reports compliance with Creon. Patient was seen and examined on the bedside. He is alert oriented x3. Complaint of diffuse abdominal pain, mentioned no bowel movements since last night. No other active complaints. Constitutional: No: Fever, Chills, Sweats, Weakness, Malaise, Other Eyes: No: Pain, Vision change, Conjunctivae inflammation, Eyelid inflammation, Other, Redness ENT: No: Ear pain, Ear discharge, Nose pain, Nose discharge, Nose congestion, Mouth pain, Mouth swelling, Throat pain, Throat swelling, Other Respiratory: Shortness of breath, improving No: Cough, Dry,Wheezing, Hemoptysis, Pleuritic Pain, Sputum, Wheezing, Other Cardiovascular: No: Chest Pain, Palpitations, Orthopnea, Paroxysmal Noc. Dyspnea, Edema, Lt Headedness, Other Gastrointestinal: Nausea, Vomiting, Abdominal Pain, Diarrhea, No Constipation, Melena, Hematochezia, Other Musculoskeletal: No: other, neck pain, shoulder pain, arm pain, back pain, hand pain, leg pain, foot pain Neurological:; No: Weakness, Numbness, Incoordination, Change in speech, Confusion, Seizures Objective vital signs Vital Sign Date Time Temp Pulse Resp B/P (MAP) Pulse Ox O2 Delivery O2 Flow Rate FiO2 10/20/24 09:52 137/82 10/20/24 09:49 53 16 10/20/24 09:00 98.0 97 98.0 10/20/24 02:16 Room Air* 0 21 Total Intake and Output 10/19/24 10/19/24 10/20/24 15:00 23:00 07:00 Intake Total 0 ml Output Total 0 ml Balance 0 ml medications Current Medications Medications Dose Ordered Sig/Dulce Route Start Time Stop Time Status Last Admin Dose Admin Ondansetron HCl 4 mg Q4HPRN PRN IV 10/20/24 00:15 10/20/24 09:47 4 MG Acetaminophen 500 mg Q4HPRN PRN PO 10/20/24 00:15 Acetaminophen/ Hydrocodone Bitart 1 tab Q4HPRN PRN PO 10/20/24 00:15 Morphine Sulfate 1 mg Q4HPRN PRN IV 10/20/24 00:15 10/20/24 09:49 1 MG Enoxaparin Sodium 40 mg DAILY SC 10/20/24 10:00 10/20/24 10:08 40 MG Pantoprazole Sodium 40 mg DAILY IV 10/20/24 10:00 10/20/24 09:49 40 MG Diagnostic Test (Pha) 1 strip ACHS 10/20/24 07:00 10/20/24 06:45 1 STRIP Insulin Human Regular ACHS SC 10/20/24 07:00 Dextrose 50 ml UD PRN IV 10/20/24 00:15 Insulin Glargine 20 units DAILY@1000 SC 10/20/24 10:00 Aspirin 81 mg DAILY PO 10/20/24 10:00 10/20/24 10:08 81 MG Atorvastatin Calcium 40 mg HS PO 10/20/24 22:00 Lisinopril 40 mg DAILY PO 10/20/24 10:00 10/20/24 09:52 40 MG Patient Own Medication 1 TIDWM PO 10/20/24 08:00 Hold Lactated Ringer's 1,000 ml @ 125 mls/hr Q8H IV 10/20/24 09:00 10/20/24 09:54 125 MLS/HR Ergocalciferol 50,000 unit Q7D PO 10/20/24 11:00 Examination Physical examination: General Appearance: Alert, Oriented X3, Cooperative, No acute distress HEENT: Atraumatic, PERRLA, EOMI, Mucous membrane moist/pink Respiratory: Clear to auscultation, Normal air movement Cardiovascular: Regular rate, Normal S1, Normal S2, No murmurs, no chest wall tenderness Abdominal: Normal bowel sounds, Soft, mild tenderness, No hepatospenomegaly, No masses Extremities: Bilateral pedal edema +,No clubbing, No cyanosis, Normal pulses, No tenderness/swelling Skin: No rashes, No breakdown, No significant lesion Neuro: Normal gait, Normal speech, Strength at 5/5 X4 ext, Normal tone, Sensation intact, Cranial nerves 3-12 NL, Reflexes 2+ Psych/Mental Status: Mental status NL, Mood NL laboratory and microbiology Laboratory Tests 10/20/24 08:56 Test 10/20/24 08:56 Range/Units Serum Glucose 98 74-106 mg/dL Labs and/or images reviewed: Labs reviewed by me, Image(s) reviewed by me Problem List/Assessment/Plan Problem List/Assessment/Plan Assessment and plan: # Acute gastroenteritis likely viral etiology # possible acute pancreatitis secondary to medication induced # intractable nausea and vomiting likely due to pancreatitis - CT abdomen pelvis without IV contrast showed no acute abdominopelvic findings - U/S of W/A showed Hepatic steatosis and hepatomegaly. Bilateral renal cysts measuring up to 2 cm in the left kidney. Bilateral mild enlargement of the kidneys. No hydronephrosis. - Lipid panel demonstrated mildly elevated triglyceride, normal cholesterol, LDL and reduced HDL. - Lipase is 331 - Blood alcohol <3.0 - clear liquid diet - IV Ringer's lactate 100 mL/hours - IV Morphine 2 mg Q4hr PRN - IV ondansetron 4 mg q.8 p.r.n. # Type 2 diabetes mellitus, hemoglobin A1c 7.8 - Lantus 10 units at q.a.m. and mild sliding scale of insulin # Possible adhesive capsulitis of right shoulder - Outpatient follow up with OT # Hypertensive heart disease - Lisinopril 40 mg p.o. daily - Aspirin 81 mg daily and atorvastatin 40 mg at HS # Vitamin-D deficiency - vitamin-D 14135 units Q 7D # PUD prophylaxis - Protonix 40 mg IV daily # DVT prophylaxis - Lovenox 40 mg sc daily . Goal of care discussed with the patient for more than 20 minutes full code Plan discussed with Dr. Lim Plan discussed with: Patient, Other My Orders My Orders Orders - YOVANA STEVENSON RESIDENT Procedure Category Date Status Time Lactated Ringer's PHA 10/20/24 In Process 09:00 Hemoglobin A1c LAB 10/20/24 In Process 10:53 Ergocalciferol PHA 10/20/24 In Process (Vitamin D 50,000 11:00 Abdomen Complete US 10/20/24 Logged Sonogram 10:57 Date of Service: Oct 20, 2024 Billing Provider: AMARA LIM DO Common Visit Codes: [id number] INP/OBS CARE(HIGH) YOVANA STEVENSON RESIDENT Oct 20, 2024 11:35 AMARA LIM DO Oct 21, 2024 22:22
--- NOTE | 2024-10-20 12:55 | DVH ---
INDICATION: Pancreatitis TECHNIQUE: Multiple real-time sonographic images of the abdomen were obtained. COMPARISON: None FINDINGS: The liver is increased in echogenicity. The liver measures 18 cm. No intrahepatic biliary ductal dilatation is noted. The gallbladder wall measures 0.2 cm and is unremarkable. No gallstones or sludge is seen. The com mon duct measures 0.5 cm and is unremarkable. No pericholecystic fluid is noted. The right kidney measures 13cm. No hydronephrosis. The left kidney measures 13cm. No hydronephrosis . There is a right renal cyst measuring 1.6 cm. There is a left renal cyst measuring 2 cm. The spleen measures 12cm, within normal limits. The echogenicity is within normal limits. The pancreas is not well visualized due to obscuration from bowel gas. The visualized portions of the IVC and aorta are grossly unremarkable. IMPRESSION: Hepatic steatosis and hepatomegaly. Bilateral renal cysts measuring up to 2 cm in the left kidney. Bi lateral mild enlargement of the kidneys. No hydronephrosis.
[2024-10-20] MEDS: ERGOCALCIFEROL 50,000 UNIT(1.25MG) CAP PO SCH (13:04)
[2024-10-20] MEDS: CYANOCOBALAMIN (B-12) 1000 MCG/1 ML VIAL IM ONE (13:06)
[2024-10-20] MEDS: ACETAMINOPHEN 500 MG TAB or CAP PO PRN (20:43)
[2024-10-20] MEDS: ATORVASTATIN 20 MG TAB PO SCH (22:09)
[2024-10-21] VITALS (7 sets, daily range): BP systolic 115–145; BP diastolic 42–78; PULSE 53–78; RESP 18–20; TEMP 97.9–98.2; O2SAT 95–98
[2024-10-21] MEDS: HYDROcodone-ACET 5/325MG TAB PO PRN (08:48)
[2024-10-21 09:46] LABS: Chloride 106 mmol/L (98-107); Potassium 3.9 mmol/L (3.5-5.1); Sodium 140 mmol/L (136-145)
[2024-10-21 09:47] LABS: Anion Gap 10 (5-15); Calcium 9.2 mg/dL (8.7-10.4); Carbon Dioxide 24 mmol/L (20-31)
[2024-10-21 09:52] LABS: Glucose 94 mg/dL (74-106)
[2024-10-21 09:53] LABS: Blood Urea Nitrogen 6 mg/dL (9-23)
[2024-10-21] MEDS: CHOLESTYRAMINE 4 GM POWDER PO ONE (12:24)
[2024-10-21] MEDS: LOPERAMIDE HCL 2 MG CAP/TAB PO ONE (12:24)
--- NOTE | 2024-10-21 14:24 | DVHPNRES ---
Progress Note Date Seen: Oct 21, 2024 Resident Creating Document: YOVANA STEVENSON RESIDENT Medical Necessity Reason Pt with a Central, PICC or Fol: No Subjective Review of Systems Patient was seen and examined on the bedside. He is alert oriented x3. Complaint of diffuse abdominal pain, loose bowel movements more than 5 times since last night. No other active complaints. Objective vital signs Vital Sign Date Time Temp Pulse Resp B/P (MAP) Pulse Ox O2 Delivery O2 Flow Rate FiO2 10/21/24 13:00 97.9 66 18 128/71 (90) 96 97.9 10/21/24 08:00 Room Air* 0 21 Total Intake and Output 10/20/24 10/20/24 10/21/24 15:00 23:00 07:00 Intake Total 0 ml 0 ml Balance 0 ml 0 ml medications Current Medications Medications Dose Ordered Sig/Dulce Route Start Time Stop Time Status Last Admin Dose Admin Acetaminophen 500 mg Q4HPRN PRN PO 10/20/24 00:15 10/20/24 20:43 500 MG Acetaminophen/ Hydrocodone Bitart 1 tab Q4HPRN PRN PO 10/20/24 00:15 10/21/24 08:48 1 TAB Enoxaparin Sodium 40 mg DAILY SC 10/20/24 10:00 10/21/24 08:47 40 MG Pantoprazole Sodium 40 mg DAILY IV 10/20/24 10:00 10/21/24 08:47 40 MG Diagnostic Test (Pha) 1 strip ACHS 10/20/24 07:00 10/21/24 11:30 1 STRIP Insulin Human Regular ACHS SC 10/20/24 07:00 Dextrose 50 ml UD PRN IV 10/20/24 00:15 Insulin Glargine 20 units DAILY@1000 SC 10/20/24 10:00 Aspirin 81 mg DAILY PO 10/20/24 10:00 10/20/24 10:08 81 MG Atorvastatin Calcium 40 mg HS PO 10/20/24 22:00 10/20/24 22:09 40 MG Lisinopril 40 mg DAILY PO 10/20/24 10:00 10/20/24 09:52 40 MG Patient Own Medication 1 TIDWM PO 10/20/24 08:00 Hold Ergocalciferol 50,000 unit Q7D PO 10/20/24 11:00 10/20/24 13:04 50,000 UNIT Lactated Ringer's 1,000 ml @ 100 mls/hr Q10H IV 10/20/24 15:30 10/21/24 11:30 100 MLS/HR Morphine Sulfate 2 mg Q4HPRN PRN IV 10/20/24 15:45 10/21/24 03:13 2 MG Ondansetron HCl 4 mg Q8HPRN PRN IV 10/20/24 16:00 10/21/24 03:07 4 MG Examination Physical examination: General Appearance: Alert, Oriented X3, Cooperative, No acute distress HEENT: Atraumatic, PERRLA, EOMI, Mucous membrane moist/pink Respiratory: Clear to auscultation, Normal air movement Cardiovascular: Regular rate, Normal S1, Normal S2, No murmurs, no chest wall tenderness Abdominal: Normal bowel sounds, Soft, mild tenderness, No hepatosplenomegaly, No masses Extremities: Bilateral pedal edema +,No clubbing, No cyanosis, Normal pulses, No tenderness/swelling Skin: No rashes, No breakdown, No significant lesion Neuro: Normal gait, Normal speech, Strength at 5/5 X4 ext, Normal tone, Sensation intact, Cranial nerves 3-12 NL, Reflexes 2+ Psych/Mental Status: Mental status NL, Mood N laboratory and microbiology Laboratory Tests 10/21/24 09:09 10/20/24 08:56 Test 10/21/24 09:09 Range/Units Serum Glucose 94 74-106 mg/dL Microbiology Date/Time Source Procedure Growth Status 10/19/24 21:52 Blood Blood Culture - Preliminary NO GROWTH AFTER 24 HOURS OF INCUBATION. Resulted Labs and/or images reviewed: Labs reviewed by me, Image(s) reviewed by me Problem List/Assessment/Plan Problem List/Assessment/Plan Assessment and plan: # Acute gastroenteritis likely viral etiology # Acute pancreatitis secondary to Ozempic # Intractable nausea and vomiting due to acute pancreatitis - CT abdomen pelvis without IV contrast showed no acute abdominopelvic findings - U/S of W/A showed Hepatic steatosis and hepatomegaly. Bilateral renal cysts measuring up to 2 cm in the left kidney. Bilateral mild enlargement of the kidneys. No hydronephrosis. - Lipid panel demonstrated mildly elevated triglyceride, normal cholesterol, LDL and reduced HDL. - Lipase is 331 - Blood alcohol <3.0 - clear liquid diet - IV Ringer's lactate 100 mL/hours - IV Morphine 2 mg Q4hr PRN - IV ondansetron 4 mg q.8 p.r.n - Imodium 4 mg once - Cholestyramine powder 4 g once # Type 2 diabetes mellitus, hemoglobin A1c 7.8 - Lantus 10 units at q.a.m. and mild sliding scale of insulin # Possible adhesive capsulitis of right shoulder - Outpatient follow up with OT # Hypertensive heart disease - Lisinopril 40 mg p.o. daily - Aspirin 81 mg daily and atorvastatin 40 mg at HS # Vitamin-D deficiency - vitamin-D 29137 units Q 7D # PUD prophylaxis - Protonix 40 mg IV daily # DVT prophylaxis - Lovenox 40 mg sc daily . Goal of care discussed with the patient for 20 minutes; full code Plan discussed with Dr. Houston Plan discussed with: Patient, Other (Nurse) My Orders My Orders Orders - YOVANA STEVENSON Procedure Category Date Status Time Lactated Ringer's PHA 10/20/24 In Process 15:30 Clear Liq Diet DIET 10/20/24 Transmitted Dinner Morphine Sulfate PHA 10/20/24 In Process Injection 15:45 Ondansetron Hcl PHA 10/20/24 In Process (Zofran) 16:00 Addendum Addendum Addendum I was physically present for the peterson portions of the service provided to patient by THE RESIDENT. I have reviewed the documentation, discussed the case with resident and agree with the resident's documentation except as noted. Also the patient's clinical case was discussed with the patient's nurse. This medical document was created using an electronic medical record system with computerized dictation system. Although this document has been carefully reviewed, there might still be some phonetic and typographical errors. These areas are purely typographical due to imperfections of the software programs, and do not reflect any compromise in the patient's medical care. Late signature. Date of Service: Oct 21, 2024 Billing Provider: BRIAN HOUSTON MD Common Visit Codes: [id number] INP/OBS CARE(HIGH) Secondary Visit Codes: [id number] CARE PLAN 30 MINUTES (20 minutes) YOVANA STEVENSON RESIDENT Oct 21, 2024 14:24 BRIAN HOUSTON MD Oct 23, 2024 07:35
[2024-10-22] VITALS (7 sets, daily range): BP systolic 125–135; BP diastolic 57–87; PULSE 51–66; RESP 17–20; TEMP 97.6–98.3; O2SAT 95–97
[2024-10-22] MEDS ORDERED: ARTIFICIAL TEARS 15ml EACHEYE ONE (11:30)
[2024-10-22] MEDS: ARTIFICIAL TEARS 15ml EACHEYE SCH (12:19)
--- NOTE | 2024-10-22 12:59 | DVHPN2 ---
Subjective Decreasing abdominal pain, nausea, vomiting, and diarrhea Reviewed: Care Plan, H&P, Labs, Medications, Previous Orders, Radiology Changes from previous H/P or p: Changes Objective Vitals Vital Signs Date Time Temp Pulse Resp B/P (MAP) Pulse Ox O2 Delivery O2 Flow Rate FiO2 10/22/24 09:14 125/57 10/22/24 09:00 98.3 59 18 96 98.3 10/22/24 08:30 Room Air* 0 21 Intake/Output Intake and Output 10/22/24 07:00 Intake Total 2820 ml Balance 2820 ml Intake Oral 1870 ml IV Total 950 ml # Voids 12 # Bowel Movements 2 General Appearance: Alert, Oriented X3, Cooperative, No acute distress HEENT: Atraumatic Lungs: Clear to auscultation, Normal air movement Cardiovascular: Regular rate, Normal S1, Normal S2 Abdomen: Normal bowel sounds, Soft, Other (Diffuse mild tenderness) Neuro: Normal speech, Cranial nerves 3-12 NL Psych/Mental Status: Mental status NL, Mood NL Medications Current Medications Medications Dose Ordered Sig/Dulce Route Start Time Stop Time Status Last Admin Dose Admin Acetaminophen 500 mg Q4HPRN PRN PO 10/20/24 00:15 10/20/24 20:43 500 MG Acetaminophen/ Hydrocodone Bitart 1 tab Q4HPRN PRN PO 10/20/24 00:15 10/22/24 09:25 1 TAB Enoxaparin Sodium 40 mg DAILY SC 10/20/24 10:00 10/22/24 09:14 40 MG Pantoprazole Sodium 40 mg DAILY IV 10/20/24 10:00 10/22/24 09:13 40 MG Diagnostic Test (Pha) 1 strip ACHS 10/20/24 07:00 10/22/24 11:03 1 STRIP Insulin Human Regular ACHS SC 10/20/24 07:00 Dextrose 50 ml UD PRN IV 10/20/24 00:15 Insulin Glargine 20 units DAILY@1000 SC 10/20/24 10:00 Aspirin 81 mg DAILY PO 10/20/24 10:00 10/22/24 09:14 81 MG Atorvastatin Calcium 40 mg HS PO 10/20/24 22:00 10/20/24 22:09 40 MG Lisinopril 40 mg DAILY PO 10/20/24 10:00 10/22/24 09:14 40 MG Patient Own Medication 1 TIDWM PO 10/20/24 08:00 Hold Ergocalciferol 50,000 unit Q7D PO 10/20/24 11:00 10/20/24 13:04 50,000 UNIT Lactated Ringer's 1,000 ml @ 100 mls/hr Q10H IV 10/20/24 15:30 10/22/24 04:06 100 MLS/HR Morphine Sulfate 2 mg Q4HPRN PRN IV 10/20/24 15:45 10/21/24 03:13 2 MG Ondansetron HCl 4 mg Q8HPRN PRN IV 10/20/24 16:00 10/21/24 03:07 4 MG Artificial Tears 1 drop BID EACHEYE 10/22/24 11:41 10/22/24 12:19 1 DROP Laboratory Results Laboratory Tests 10/20/24 08:56 10/21/24 09:09 Urinalysis Test 10/20/24 08:48 Urine Color Light-yellow (Yellow) Urine Clarity Clear (Clear) Urine pH 5.0 (5.0-9.0) Urine Specific [place] 1.017 (1.001-1.035) Urine Protein Negative (Negative) Urine Ketones Negative (Negative) Urine Blood Negative /uL (Negative) Urine Nitrite Negative (Negative) Urine Bilirubin Negative (Negative) Urine Urobilinogen Normal mg/dL (Negative) Urine Leukocyte Esterase Negative /uL (Negative) Urine RBC 1 /hpf (0 - 3) Urine Microscopic WBC 1 /HPF (0-3) Urine Squamous Epithelial Cells None seen /hpf (<5) Urine Bacteria None seen /hpf (None Seen) Urine Mucus Few (None Seen) Urine Microalbumin 6.0 mg/L (<30.0) Urine Glucose Normal mg/dL (Normal) Microbiology Microbiology Date/Time Source Procedure Growth Status 10/19/24 21:52 Blood Blood Culture - Preliminary NO GROWTH AFTER 48 HOURS OF INCUBATION. Resulted Labs and/or images reviewed: Labs reviewed by me, Image(s) reviewed by me Assessment/Plan Assessment/Plan Covering: Acute abdomen due to acute pancreatitis secondary to Ozempic Uncontrolled diabetes mellitus type 2 Hypertensive heart disease Morbid obesity Vitamin D deficiency Continue IV fluids To slowly advance diet as patient tolerates Continue antiemetics and pain management as indicated Continue antihypertensive medications and adjust accordingly Continue holding Ozempic for now Continue insulin therapy with hypoglycemia protocol Counseled the patient about the importance of adopting healthy lifestyle with diet and exercise in order to lose weight Continue vitamin D supplement Continue monitoring Late Entry. This medical document was created using an electronic medical record system with computerized dictation system. Although this document has been carefully reviewed, there might still be some phonetic and typographical errors. These areas are purely typographical due to imperfections of the software programs, and do not reflect any compromise in the patient's medical care. Plan discussed with: Patient, Spouse, Other (Nurse) My Orders Orders - BRIAN HOUSTON MD Procedure Category Date Status Time Communication Order ORDERS 10/21/24 Transmitted 13:40 Artificial Tear 15ml PHA 10/22/24 In Process Opthalmic (Tears Na 11:41 Date of Service: Oct 22, 2024 Billing Provider: BRIAN HOUSTON MD Common Visit Codes: [id number] INP/OBS CARE(HIGH) BRIAN HOUSTON MD Oct 22, 2024 12:59
[2024-10-23 01:00] VITALS: BP 133/76; PULSE 54; RESP 17; TEMP 98.2; O2SAT 95
[2024-10-23 05:58] VITALS: BP 142/80; PULSE 60; RESP 18; TEMP 97.9; O2SAT 97
[2024-10-23 07:19] LABS: Basophils # (auto) 0 10 ^3/uL (0-0.2); Basophils % (auto) 0.5 % (0.0-2.0); Eosinophils # (auto) 0.2 10 ^3/uL (0-0.8); Eosinophils % (auto) 2.7 % (0.0-7.0); Hematocrit 41.9 % (41.0-53.0); Hemoglobin 14.3 g/dL (13.5-17.5); Lymphocytes # (auto) 1.8 10 ^3/uL (0.4-5.4); Lymphocytes % (auto) 26.9 % (10.0-50.0); Mean Corpuscular Hemoglobin 30.6 pg (28.0-32.0); Mean Corpuscular Hgb Conc. 34.2 g/dL (32.0-36.0); Mean Corpuscular Volume 89.6 fL (80.0-100.0); Monocytes # (auto) 0.8 10 ^3/uL (0-1.3); Monocytes % (auto) 11.5 % (0.0-12.0); Neutrophils % (auto) 58.4 % (37.0-80.0); Nucleated Red Blood Cells % 0.2 %; Platelet Count (auto) 193 10^3/uL (140-450); Red Blood Cells 4.68 10^6/uL (4.5-5.90); Red Cell Distribution Width 12.9 % (11.8-14.3); White Blood Cell 6.8 10^3/uL (4.4-10.8)
[2024-10-23 07:37] LABS: Albumin 4.2 g/dL (3.2-4.8); Alkaline Phosphatase 65 U/L (46-116); Anion Gap 8 (5-15); BUN/Creatinine Ratio 7.2 (10.0-20.0); Calcium 9.5 mg/dL (8.7-10.4); Carbon Dioxide 27 mmol/L (20-31); Chloride 107 mmol/L (98-107); Lipase 36 U/L (12-53); Potassium 4.1 mmol/L (3.5-5.1); Sodium 142 mmol/L (136-145); Total Protein 6.2 g/dL (5.7-8.2)
[2024-10-23 07:49] LABS: Alanine Aminotransferase 57 U/L (7-40); Aspartate Aminotransferase 41 U/L (13-40); Bilirubin, Total 1.2 mg/dL (0.2-1.0); Blood Urea Nitrogen 6 mg/dL (9-23); Glucose 113 mg/dL (74-106)
[2024-10-23 08:00] VITALS: PULSE 59; RESP 15
[2024-10-23 08:18] VITALS: BP 147/79; PULSE 59; RESP 15; TEMP 97.9; O2SAT 95
[2024-10-23] MEDS ORDERED: ERGO1CAP23 PO (09:06)
--- NOTE | 2024-10-23 16:32 | DVHDSRES ---
Discharge Summary Date of Admission Resident Creating Document: YOVANA STEVENSON RESIDENT Oct 20, 2024 at 00:13 Date of Discharge: Oct 23, 2024 Admitting Diagnosis Abdominal pain, and diarrhea for the past 10 days Wounds: No wound was present Labs/Diagnostic Data: Laboratory Results Test 10/23/24 06:18 10/20/24 08:56 10/20/24 08:48 10/20/24 06:16 White Blood Count 6.8 10^3/uL (4.4-10.8) Red Blood Count 4.68 10^6/uL (4.5-5.90) Hemoglobin 14.3 g/dL (13.5-17.5) Hematocrit 41.9 % (41.0-53.0) Mean Corpuscular Volume 89.6 fL (80.0-100.0) Mean Corpuscular Hemoglobin 30.6 pg (28.0-32.0) Mean Corpuscular Hemoglobin Concent 34.2 g/dL (32.0-36.0) Red Cell Distribution Width 12.9 % (11.8-14.3) Platelet Count 193 10^3/uL (140-450) Mean Platelet Volume 8.1 fL (6.9-10.8) Neutrophils (%) (Auto) 58.4 % (37.0-80.0) Lymphocytes (%) (Auto) 26.9 % (10.0-50.0) Monocytes (%) (Auto) 11.5 % (0.0-12.0) Eosinophils (%) (Auto) 2.7 % (0.0-7.0) Basophils (%) (Auto) 0.5 % (0.0-2.0) Neutrophils # (Auto) 4.0 10 ^3/uL (1.6-8.6) Lymphocytes # (Auto) 1.8 10 ^3/uL (0.4-5.4) Monocytes # (Auto) 0.8 10 ^3/uL (0-1.3) Eosinophils # (Auto) 0.2 10 ^3/uL (0-0.8) Basophils # (Auto) 0 10 ^3/uL (0-0.2) Nucleated Red Blood Cells 0.2 % Sodium Level 142 mmol/L (136-145) Potassium Level 4.1 mmol/L (3.5-5.1) Chloride Level 107 mmol/L (98-107) Carbon Dioxide Level 27 mmol/L (20-31) Anion Gap 8 (5-15) Blood Urea Nitrogen 6 mg/dL (9-23) Creatinine 0.83 mg/dL (0.700-1.30) Glomerular Filtration Rate Calc 103 mL/min (>90) BUN/Creatinine Ratio 7.2 (10.0-20.0) Serum Glucose 113 mg/dL (74-106) Calcium Level 9.5 mg/dL (8.7-10.4) Total Bilirubin 1.2 mg/dL (0.2-1.0) Aspartate Amino Transferase (AST) 41 U/L (13-40) Alanine Aminotransferase (ALT) 57 U/L (7-40) Alkaline Phosphatase 65 U/L (46-116) Total Protein 6.2 g/dL (5.7-8.2) Albumin 4.2 g/dL (3.2-4.8) Lipase 36 U/L (12-53) Erythrocyte Sedimentation Rate 6 mm/hr (0-20) Prothrombin Time 10.9 sec (9.3-11.8) Prothrombin Time INR 1.03 (0.9-1.15) Activated Partial Thromboplast Time 24.5 SEC (24.5-34.5) Hemoglobin A1c 7.8 % A1C (<5.7) Magnesium Level 1.7 mg/dL (1.6-2.6) C-Reactive Protein High Sensitivity 0.12 mg/dL (<1.0) B-Type Natriuretic Peptide 81.68 pg/mL (0-100) Triglycerides Level 170 mg/dL (< 150) Cholesterol Level 158 mg/dL (< 200) LDL Cholesterol 67 mg/dL (< 100) HDL Cholesterol 32 mg/dL (40-59) Vitamin B12 Level 243 pg/mL (211-911) Vitamin D 25-Hydroxy 21.3 ng/mL (30.0-100) Thyroid Stimulating Hormone (TSH) 2.28 uIU/mL (0.55-4.78) Plasma/Serum Blood Alcohol < 3.0 mg/dL (<10) Urine Color Light-yellow (Yellow) Urine Clarity Clear (Clear) Urine pH 5.0 (5.0-9.0) Urine Specific [place] 1.017 (1.001-1.035) Urine Protein Negative (Negative) Urine Ketones Negative (Negative) Urine Blood Negative /uL (Negative) Urine Nitrite Negative (Negative) Urine Bilirubin Negative (Negative) Urine Urobilinogen Normal mg/dL (Negative) Urine Leukocyte Esterase Negative /uL (Negative) Urine RBC 1 /hpf (0 - 3) Urine Microscopic WBC 1 /HPF (0-3) Urine Squamous Epithelial Cells None seen /hpf (<5) Urine Bacteria None seen /hpf (None Seen) Urine Mucus Few (None Seen) Urine Microalbumin 6.0 mg/L (<30.0) Urine Glucose Normal mg/dL (Normal) Urine Opiates Screen Pos (NEGATIVE) Urine Fentanyl Screen Neg (NEGATIVE) Urine Barbiturates Screen Neg (NEGATIVE) Urine Phencyclidine Screen Neg (NEGATIVE) Urine Amphetamines Screen Neg (NEGATIVE) Urine Benzodiazepines Screen Neg (NEGATIVE) Urine Cocaine Screen Neg (NEGATIVE) Urine Cannabinoids Screen Neg (NEGATIVE) POC Glucose 98 mg/dl (70-106) Test 10/19/24 21:52 Lactic Acid Level 1.2 mmol/L (0.4-2.0) Troponin I High Sensitivity 4 ng/L (</=54) Other Laboratory Tests 10/23/24 06:18 Brief Hx & Hospital Course: Mr Vance 54 year old male with past medical history of chronic pancreatitis secondary to medication (Viberzi/eluxadoline) on Creon, Diabetes mellitus type 2 on insulin, disc herniation, right shoulder pain, and hypertension presented to the ER with a chief complaint of abdominal pain, and diarrhea for the past 10 days. Patient was seen in the urgent care 10 days back due to right shoulder pain, later developed nausea and vomiting with fever and chills at home. Patient's was also experiencing the same symptoms. Patient got better in a couple of days and later started developing abdominal pain which is diffuse along with diarrhea which is watery, foamy and floating with rotten smell, he is having more than 10 episodes of diarrhea in a day. Patient can not keep solids or liquids food down. Associated symptoms include nausea. Denies any blood in vomitus or stool. Reports compliance with Creon. Hospital course: Patient was initially presented with abdominal pain likely due to possible pancreatitis secondary to Ozempic use and viral gastroenteritis which later resolved. CT abdomen pelvis without IV contrast showed no acute abdominopelvic findings. U/S of W/A showed Hepatic steatosis and hepatomegaly. Bilateral renal cysts measuring up to 2 cm in the left kidney. Bilateral mild enlargement of the kidneys. No hydronephrosis. Lipid panel demonstrated mildly elevated triglyceride, normal cholesterol, LDL and reduced HDL. Lipase was 331 and Blood alcohol <3.0. Patient was treated with clear liquid diet, IV Ringer's lactate 100 mL/hours, IV Morphine 2 mg Q4hr PRN and IV ondansetron 4 mg q.8 p.r.n. Blood sugar was controlled with sliding scale of insulin and resumed home medications for hypertension and dyslipidemia. For possible adhesive capsulitis of the right shoulder advised the patient to do outpatient follow up with occupational therapist. Discharge plan was discussed with the patient and all questions were answered. Patient is being discharged to home and advised to resumed home medications, discontinue Ozempic and follow up with [facility] in 1 week. Physical examination on the day of discharge: General Appearance: Alert, Oriented X3, Cooperative, No acute distress HEENT: Atraumatic, PERRLA, EOMI, Mucous membrane moist/pink Respiratory: Clear to auscultation, Normal air movement Cardiovascular: Regular rate, Normal S1, Normal S2, No murmurs, no chest wall tenderness Abdominal: Normal bowel sounds, Soft, No tenderness, No hepatosplenomegaly, No masses Extremities: No clubbing, No cyanosis, No edema, Normal pulses, No tenderness/swelling Skin: No rashes, No breakdown, No significant lesion Neuro: Normal gait, Normal speech, Strength at 5/5 X4 ext, Normal tone, Sensation intact, Cranial nerves 3-12 NL, Reflexes 2+ Psych/Mental Status: Mental status NL, Mood NL Discussed with Dr. Houston Consults/Reason for consult No consultation was done Operations or Procedures Exam: CT CT AB PEL WO CON-NO ORAL OR IV Radiation Dose : 1. Abdomen/Pelvis: CTDIvol mGy, DLP mGy*cm. Findings: Evaluation of solid organs is limited due to lack of intravenous contrast use. Lung Bases: No abnormality demonstrated. Liver: Liver is normal in size. No focal lesions noted. Gallbladder and Biliary Tree: No abnormality demonstrated. Spleen: No abnormality demonstrated. Pancreas: No abnormality demonstrated. Adrenal Glands: No abnormality demonstrated. Kidneys: Two small nonobstructing calculi noted in the lower pole of the right kidney. Probable small bilateral renal cysts. No hydroureteronephrosis. Bladder: Grossly unremarkable for degree of distention. Bowel: Stomach appears grossly unremarkable. No abnormally dilated or thick- walled loops of large or small bowel noted. Appendix appears unremarkable. Ascites: Absent Lymphadenopathy: No evidence of lymphadenopathy. Abdominal Wall and Mesentery: Unremarkable. Vasculature: Unremarkable given lack of intravenous contrast. Pelvic Organs: Unremarkable Musculoskeletal: No bony lesions or fracture. S/p laminotomies at L4 and L5 and interbody fusion at L4-L5 and L5-S1. No spinal canal stenosis. IMPRESSION: No acute abdominal or pelvic findings. INDICATION: Pancreatitis COMPARISON: None FINDINGS: The liver is increased in echogenicity. The liver measures 18 cm. No intrahepatic biliary ductal dilatation is noted. The gallbladder wall measures 0.2 cm and is unremarkable. No gallstones or sludge is seen. The common duct measures 0.5 cm and is unremarkable. No pericholecystic fluid is noted. The right kidney measures 13cm. No hydronephrosis. The left kidney measures 13cm. No hydronephrosis. There is a right renal cyst measuring 1.6 cm. There is a left renal cyst measuring 2 cm. The spleen measures 12cm, within normal limits. The echogenicity is within normal limits. The pancreas is not well visualized due to obscuration from bowel gas. The visualized portions of the IVC and aorta are grossly unremarkable. IMPRESSION: Hepatic steatosis and hepatomegaly. Bilateral renal cysts measuring up to 2 cm in the left kidney. Bilateral mild enlargement of the kidneys. No hydronephrosis. Condition at Discharge: Stable Final Diagnosis/Problems List # Acute gastroenteritis likely viral etiology # Acute pancreatitis secondary to Ozempic # Intractable nausea and vomiting due to acute pancreatitis # Type 2 diabetes mellitus, hemoglobin A1c 7.8 # Possible adhesive capsulitis of right shoulder # Hypertensive heart disease # Vitamin-D deficiency Discharge Disposition: Home Discharge Instruct/Medications Diet: Consistent carbohydrate Diet comment: Full liquid diet for 1 week then to advance diet as tolerated Activity: No Restrictions, As Tolerated Follow Up/Referral: Follow up with PCP in 1 week Medications: As per EMR Discharge Statement: "Patient was advised to return to the ER or call 911 if any headaches, dizziness, shortness of breath, chest pain, abdominal pain, bleeding, fevers, or worsening of medical condition. Patient was counseled about treatment plan, medications, possible side effects, patientverbalized understanding. All questions were answered to the best of my ability. This discharge took greater then 30 minutes in planning, reviewing documentation, counseling the patient, and discussing with other team members." ASSESSMENT ASSESSMENT Assessment # Acute gastroenteritis likely viral etiology # Acute pancreatitis secondary to Ozempic # Intractable nausea and vomiting due to acute pancreatitis # Type 2 diabetes mellitus, hemoglobin A1c 7.8 # Possible adhesive capsulitis of right shoulder # Hypertensive heart disease # Vitamin-D deficiency Addendum Addendum Addendum I was physically present for the peterson portions of the service provided to patient by THE RESIDENT. I have reviewed the documentation, discussed the case with resident and agree with the resident's documentation except as noted. Also the patient's clinical case was discussed with the patient's nurse. This medical document was created using an electronic medical record system with computerized dictation system. Although this document has been carefully reviewed, there might still be some phonetic and typographical errors. These areas are purely typographical due to imperfections of the software programs, and do not reflect any compromise in the patient's medical care. Late signature. Date of Service: Oct 23, 2024 Billing Provider: BRIAN HOUSTON MD Common Visit Codes: [id number] DISCH DAY >30min YOVANA STEVENSON RESIDENT Oct 23, 2024 16:32 BRIAN HOUSTON MD Oct 24, 2024 15:17
== END 2024-10-23 10:40 | disposition home or self-care (01) | DRG 391 ==
LOC: ER 21:39 → OVERFLOW 10-20 00:13 → WEST WING 10-20 04:06
PROVIDERS: ATTEND Emergency Medicine
DX: A08.4 Viral intestinal infection, unspecified (principal); K85.30 Drug induced acute pancreatitis without necrosis or infection; E11.9 Type 2 diabetes mellitus without complications; E55.9 Vitamin D deficiency, unspecified; G89.29 Other chronic pain; M50.20 Other cervical disc displacement, unspecified cervical region; E66.01 Morbid (severe) obesity due to excess calories; I11.9 Hypertensive heart disease without heart failure; M75.01 Adhesive capsulitis of right shoulder; T50.995A Adverse effect of other drugs, medicaments and biological substances, initial encounter; Z88.1 Allergy status to other antibiotic agents; Z79.82 Long term (current) use of aspirin; Z79.4 Long term (current) use of insulin; Z79.899 Other long term (current) drug therapy; Y92.89 Other specified places as the place of occurrence of the external cause
CPT/HCPCS: 36415; 74176; 76700; 80048; 80053; 80061; 80307; 80320; 81001; 82043; 82306; 82607; 82962; 83036; 83605; 83690; 83735; 83880; 84443; 84484; 85025; 85610; 85652; 85730; 86141; 87040; 96361; 96374; 96375; G0378; J1815; J2405; J2470

== ENCOUNTER 2024-10-30 15:15 | Emergency (ER) | payer OTHER ==
[~2024-10-30] VITALS: Ht 165.1 cm; Wt 117.4 kg
[~2024-10-30 15:15] MED LIST changes: -ALBU108A5 IN; +ERGO1CAP23 PO; -HYDR-4902 PO; -PRED20TA2 PO
[2024-10-30 15:59] LABS: Basophils # (auto) 0.1 10 ^3/uL (0-0.2); Basophils % (auto) 0.9 % (0.0-2.0); Eosinophils # (auto) 0.2 10 ^3/uL (0-0.8); Eosinophils % (auto) 2.8 % (0.0-7.0); Hematocrit 47.5 % (41.0-53.0); Hemoglobin 15.6 g/dL (13.5-17.5); Lymphocytes # (auto) 1.8 10 ^3/uL (0.4-5.4); Lymphocytes % (auto) 24.9 % (10.0-50.0); Mean Corpuscular Hemoglobin 29.8 pg (28.0-32.0); Mean Corpuscular Hgb Conc. 32.8 g/dL (32.0-36.0); Mean Corpuscular Volume 90.7 fL (80.0-100.0); Monocytes # (auto) 0.7 10 ^3/uL (0-1.3); Neutrophils # (auto) 4.6 10 ^3/uL (1.6-8.6); Neutrophils % (auto) 62.4 % (37.0-80.0); Nucleated Red Blood Cells % 0.3 %; Platelet Count (auto) 256 10^3/uL (140-450); Red Blood Cells 5.24 10^6/uL (4.5-5.90); Red Cell Distribution Width 13.1 % (11.8-14.3); White Blood Cell 7.4 10^3/uL (4.4-10.8)
[2024-10-30 16:04] LABS: Urine Bacteria None Seen /hpf (None Seen)
[2024-10-30 16:18] LABS: Urine Blood Negative /uL (Negative); Urine Clarity Clear (Clear); Urine Color Light-Yellow (Yellow); Urine Mucus FEW (None Seen); Urine Protein, UAD Negative (Negative); Urine Specific Gravity 1.022 (1.001-1.035); Urine Squamous Epithelial Cell None Seen /hpf (<5); Urine Urobilinogen Normal (Negative); Urine WBC 1 /HPF (0-3)
--- NOTE | 2024-10-30 16:19 | ED.PDOC ---
GI ASSESSMENT HPI Comments 54 y.o male with PMHx of DM, HTN, hyperlipidemia, chronic pancreatitis, coming from the discharge clinic, presents to the ED for pancreatitis and to rule out a PE. Patient was seen by PCP, was recently admitted to this hospital for pancreatitis and diarrhea and was discharged on 10/23/24. Patient reports pain is more tolerable now, states diarrhea is still constant but was told by PCP upon his examination today, abdomen was distended, and there was concern for ongoing pancreatitis. Patient's primary physician also requested patient be screened for PE. Patient denies any new symptoms, fever, chills, SOB, chest pain. Chief Complaint: Abdominal Pain Time Seen by MD: 16:06 Primary Care Provider: ROSEMARIE Reviewed Notes: Nurses Notes, Medications, Allergies Allergies: Coded Allergies: Cephalexin (Verified Allergy, 01/14/12) Home Meds Active Scripts Cholestyramine (QUESTRAN POWDER) 4 Gm Pw, 4 GM PO Q12HP PRN, #1 BOTTLE prn diarrhea Prov:MINNA ELKINS MD 10/30/24 Ergocalciferol (VITAMIN D 81215 UNIT) 50,[address] [place], [address] UNIT PO weekly for 10 Days, #10 CAP Prov:YOVANA STEVENSON RESIDENT 10/23/24 Albuterol Sulfate (Albuterol Sulfate) 0.083 % Neb, 1 VIAL NEB Q4HPRN PRN, #50 VIAL Prov:GONZÁLEZ REAL DO 08/03/23 Ondansetron (Zofran) 4 Mg Tab, 1 TAB PO Q8HR PRN, #10 TAB 0 Refills Prov:LIAT CAGE 06/25/22 Reported Medications Insulin Lispro (Insulin Lispro) 100 Unit/Ml Inj, 100 UNIT SC TID, INJ 06/10/19 Pantoprazole Sodium Sesquihydr (Protonix) 40 Mg Tab, 40 MG PO DAILY, #30 TAB 06/10/19 Atorvastatin Calcium (ATORVASTATIN CALCIUM) 40 Mg Tab, 40 MG PO DAILY, TAB 06/10/19 Lisinopril (Lisinopril) 40 Mg Tab, 40 MG PO BID for 30 Days, MG 06/10/19 Pancreatic Enzymes (CREON) 3,000 Unit Cap, 50278 UNIT PO TIDWMEALS, CAP 06/10/19 Aspirin (Aspir-Low) 81 Mg Tab, 81 MG PO DAILY for 30 Days, MG 12/22/13 Discontinued Scripts Prednisone (Prednisone) 20 Mg Tab, 60 MG PO DAILY for 7 Days, #21 MG Prov:GONZÁLEZ REAL DO 08/03/23 Albuterol Sulfate (Albuterol Sulfate Hfa) 108 Mcg/Act Aer, 108 MCG IN Q2HP PRN, #1 AER Prov:GONZÁLEZ REAL DO 08/03/23 Hydrocodone-Acetaminophen (Hydrocodone Bitartrate/AC 5-325 mg) 1 Tab Tab, 1 TAB PO Q4HPRN PRN, #10 TAB 0 Refills Prov:LIAT CAGE 06/25/22 Information Source: Patient Mode of Arrival: Ambulatory Timing: Days Duration: Since onset Quality: Aching Vomitus: None Stool: Loose, Watery Recent: None Pain Location: Epigastric Modifying Factors: Nothing Associated sign and symptoms: Diarrhea, Abdominal Pain Past Medical History PAST MEDICAL HISTORY: DM, High Lipids, HTN Past Medical History (Other): Chronic pancreatitis Family History Family History: Reviewed,noncontributory to illness Social History Smoker: Non-Smoker Alcohol: Denies ETOH Use Drugs: Denies Drug Use Lives In: Home Constitutional: denies: chills, diaphoresis, fatigue, fever, malaise, sweats, weakness, others EENTM: denies: blurred vision, double vision, ear bleeding, ear discharge, ear drainage, ear pain, ear ringing, eye pain, eye redness, hearing loss, mouth pain, mouth swelling, nasal discharge, nose bleeding, nose congestion, nose pain, photophobia, tearing, throat pain, throat swelling, voice changes, others Respiratory: denies: cough, hemoptysis, orthopnea, SOB at rest, shortness of breath, SOB with excertion, stridor, wheezing, others Cardiovascular: denies: chest pain, dizzy spells, diaphoresis, Dyspnea on exertion, edema, irregular heart beat, left arm pain, lightheadedness, palpitations, PND, syncope, others Gastrointestinal: reports: abdominal pain, diarrhea; denies: abdomen distended, blood streaked bowels, constipated, dysphagia, difficulty swallowing, hematemesis, melena, nausea, poor appetite, poor fluid intake, rectal bleeding, rectal pain, vomiting, others Genitourinary: denies: burning, dysuria, flank pain, frequency, hematuria, incontinence, penile discharge, penile sore, pain, testicle pain, testicle swelling, urgency, others Neurological: denies: dizziness, fainting, headache, left sided numbness, left sided weakness, numbness, paresthesia, pre-existing deficit, right sided numbness, right sided weakness, seizure, speech problems, tingling, tremors, weakness, others Musculoskeletal: denies: back pain, gout, joint pain, joint swelling, muscle pain, muscle stiffness, neck pain, others Integumetry: denies: bruises, change in color, change in hair/nails, dryness, laceration, lesions, lumps, rash, wounds, others Allergic/Immunocompromised: denies: Difficulty Healing, Frequent Infections, Hives, Itching, others Hematologic/Lymphatic: denies: anemia, blood clots, easy bleeding, easy bruising, swollen glands, others Endocrine: denies: excessive hunger, excessive sweating, excessive thirst, excessive urination, flushing, intolerance to cold, intolerance to heat, unexplained weight gain, unexplained weight loss, others Psychiatric: denies: anxiety, bipolar disorder, depression, hopeless, panic disorder, schizophrenia, sleepless, suicidal, others All Other Systems: Reviewed and Negative Physical Exam General Appearance: No Apparent Distress, Obese HEENT: Other (Pupils and face symmetric. Moist mucous membranes.) Neck: Full Range of Motion, Normal Inspection Respiratory: Lungs Clear, No Accessory Muscle Use, No Respiratory Distress, Normal Breath Sounds Cardiovascular: No Edema, No JVD, Regular Rate/Rhythm Breast Exam: Deferred Gastrointestinal: Soft, Tenderness (Mild epigastric tenderness to palpation. No rebound or guarding.) Genitalia: Deferred Pelvic: Deferred Rectal: Deferred Extremities: No calf tenderness, Normal inspection, Normal range of motion, Non-tender, No pedal edema Neurologic: Alert (Oriented x4), Normal Affect, Normal Mood, Other (Ambulatory) Cerebellar Function: NOT DONE Reflexes: NOT DONE Skin: Dry, Normal Color, Warm Lymphatic: NOT DONE Was a procedure done? Was a procedure done?: No GI differential Dx Differential Diagnosis: Diverticular disease, Gastroenteritis, Inflammatory BD, Pancreatitis, UTI, Dehydration, Electrolyte Imbalance, Bacterial, Viral, Hypovolemia, Stress Ulcer Other Differential Diagnosis Colitis X-Ray, Labs, Meds, VS Vital Signs Date Time Temp Pulse Resp B/P (MAP) Pulse Ox O2 Delivery O2 Flow Rate FiO2 10/30/24 16:45 96 17 97 Room Air* 0 21 10/30/24 16:45 98.1 96 17 134/90 (105) 97 98.1 10/30/24 15:27 98.6 106 16 142/88 (106) 96 98.6 Lab Test 10/30/24 15:42 10/30/24 15:25 Range/Units White Blood Count 7.4 4.4-10.8 10^3/uL Red Blood Count 5.24 4.5-5.90 10^6/uL Hemoglobin 15.6 13.5-17.5 g/dL Hematocrit 47.5 41.0-53.0 % Mean Corpuscular Volume 90.7 80.0-100.0 fL Mean Corpuscular Hemoglobin 29.8 28.0-32.0 pg Mean Corpuscular Hemoglobin Concent 32.8 32.0-36.0 g/dL Red Cell Distribution Width 13.1 11.8-14.3 % Platelet Count 256 140-450 10^3/uL Mean Platelet Volume 8.4 6.9-10.8 fL Neutrophils (%) (Auto) 62.4 37.0-80.0 % Lymphocytes (%) (Auto) 24.9 10.0-50.0 % Monocytes (%) (Auto) 9.0 0.0-12.0 % Eosinophils (%) (Auto) 2.8 0.0-7.0 % Basophils (%) (Auto) 0.9 0.0-2.0 % Neutrophils # (Auto) 4.6 1.6-8.6 10 ^3/uL Lymphocytes # (Auto) 1.8 0.4-5.4 10 ^3/uL Monocytes # (Auto) 0.7 0-1.3 10 ^3/uL Eosinophils # (Auto) 0.2 0-0.8 10 ^3/uL Basophils # (Auto) 0.1 0-0.2 10 ^3/uL Nucleated Red Blood Cells 0.3 % D-Dimer, Quantitative 0.38 0.0-0.49 mg/L FEU Sodium Level 142 136-145 mmol/L Potassium Level 4.3 3.5-5.1 mmol/L Chloride Level 107 98-107 mmol/L Carbon Dioxide Level 28 20-31 mmol/L Anion Gap 7 5-15 Blood Urea Nitrogen 14 9-23 mg/dL Creatinine 0.96 0.700-1.30 mg/dL Glomerular Filtration Rate Calc 93 >90 mL/min BUN/Creatinine Ratio 14.6 10.0-20.0 Serum Glucose 219 H 74-106 mg/dL Calcium Level 10.1 8.7-10.4 mg/dL Total Bilirubin 0.5 0.2-1.0 mg/dL Aspartate Amino Transferase (AST) 30 13-40 U/L Alanine Aminotransferase (ALT) 75 H 7-40 U/L Alkaline Phosphatase 108 46-116 U/L Total Protein 6.7 5.7-8.2 g/dL Albumin 4.8 3.2-4.8 g/dL Lipase 47 12-53 U/L Urine Color Light-yellow Yellow Urine Clarity Clear Clear Urine pH 5.0 5.0-9.0 Urine Specific [place] 1.022 1.001-1.035 Urine Protein Negative Negative Urine Ketones Trace Negative Urine Blood Negative Negative /uL Urine Nitrite Negative Negative Urine Bilirubin Negative Negative Urine Urobilinogen Normal Negative mg/dL Urine Leukocyte Esterase Negative Negative /uL Urine RBC 1 0 - 3 /hpf Urine Microscopic WBC 1 0-3 /HPF Urine Squamous Epithelial Cells None seen <5 /hpf Urine Bacteria None seen None Seen /hpf Urine Mucus Few None Seen Urine Glucose 4+ H Normal mg/dL PROCEDURE(s): ABPL - CT AB PEL WO CON-NO ORAL OR IV REASON: upper abd pain ORDER NUMBER(s): [id number], ACCESSION NUMBER(s): [id number] Indication: upper abd pain Technique: CT axial images of the abdomen and pelvis are obtained without contrast. Coronal and sagittal reformats were obtained. Radiation Dose Information: CTDI volume is 26 mGy. Dose-length product is 1410 mGy*cm Comparison: CT CT AB PEL WO CON-NO ORAL OR IV on DOS: 10/19/24 FINDINGS: There is limited interpretation of the abdomen and pelvis without administration of intravenous contrast. Lung bases demonstrate atelectasis. Adrenal glands, spleen and pancreas are unremarkable in shape. There is no CT evidence for cholelithiasis. Hepatic steatosis. Nonobstructing right renal calculi up to 4 mm. Bilateral renal cysts. Gastric distention. Small bowel loops are normal in caliber. Moderate volume stool within the colon. Colonic diverticular disease. Normal appendix. Abdominal aortic atherosclerotic disease. Bladder is partially distended. No free pelvic fluid. No inguinal lymphadenopathy. Left iliac cementoplasty. Fusion at L4, L5. Posterior decompression L4-5. IMPRESSION: 1. Nonobstructing bilateral renal calculi. 2. Hepatic steatosis.Colonic diverticular disease. 3. Gastric distention. 4. Other findings as described. X-Ray, Labs, Meds, VS Comment 54-year-old male with PMHx of DM, HTN, hyperlipidemia, chronic pancreatitis, referred from discharge clinic by Dr. Hou to be evaluated for persistent pa ncreatitis and for PE Vitals remarkable for heart rate 106, BP 142/88 Exam remarkable for mild epigastric tenderness to palpation Rhythm strip independently interpreted by me: Sinus tach, rate 106, no ectopy. CT abdomen and pelvis IMPRESSION: 1. Nonobstructing bilateral renal calculi. 2. Hepatic steatosis.Colonic diverticular disease. 3. Gastric distention. 4. Other findings as described. CBC normal, CMP remarkable for glucose 219, lipase normal, D-dimer negative, UA trace ketones, 4+ glucose, otherwise unremarkable Patient declined any medication in the ED, stating he was comfortable. On re-evaluation, patient stated he remained comfortable and would like to be discharged home. Case was discussed with Dr. Hou, who was comfortable with the patient being discharged. Patient will be prescribed cholestyramine, since he stated it helped with his diarrhea. Time of 1ST Reevaluation: 16:19 Reevaluation 1ST: Unchanged Patient Education/Counseling: Diagnosis, Treatment, Prognosis Family Education/Counseling: Diagnosis, Treatment, Prognosis Departure 1 Departure Time of Disposition: 19:41 Impression: Primary Impression: Diarrhea Qualified Codes: R19.7 - Diarrhea, unspecified Disposition: 01 HOME / SELF CARE / HOMELESS Condition: Stable Additional Instructions: Follow-up with Dr. Hou in clinic. Please call for an appointment. I have prescribed medication for diarrhea. Return to ER for persistent or worsening symptoms. e-Prescriptions Cholestyramine (QUESTRAN POWDER) 4 Gm Pw 4 GM PO Q12HP PRN, #1 BOTTLE prn diarrhea Prov: MINNA ELKINS MD 10/30/24 Discharged With: Spouse Critical Care Note Critical Care Time?: No Stability Stability form required: No I personally scribed for MINNA ELKINS MD ([facility] on 10/30/24 at 16:19. Electronically submitted by Mayra Hutchins ([facility]). IMNNA ELKINS MD October 30, 2024 16:19
[2024-10-30 16:24] LABS: Albumin 4.8 g/dL (3.2-4.8); Alkaline Phosphatase 108 U/L (46-116); Anion Gap 7 (5-15); Aspartate Aminotransferase 30 U/L (13-40); BUN/Creatinine Ratio 14.6 (10.0-20.0); Bilirubin, Total 0.5 mg/dL (0.2-1.0); Blood Urea Nitrogen 14 mg/dL (9-23); Calcium 10.1 mg/dL (8.7-10.4); Carbon Dioxide 28 mmol/L (20-31); Chloride 107 mmol/L (98-107); Lipase 47 U/L (12-53); Potassium 4.3 mmol/L (3.5-5.1); Sodium 142 mmol/L (136-145); Total Protein 6.7 g/dL (5.7-8.2)
--- NOTE | 2024-10-30 16:28 | DVH ---
Indication: upper abd pain Technique: CT axial images of the abdomen and pelvis are obtained without contrast. Coronal and sagit marielena reformats were obtained. Radiation Dose Information: CTDI volume is 26 mGy. Dose-length product is 1410 mGy*cm Comparison: CT CT AB PEL WO CON-NO ORAL OR IV on DOS: 10/19/24 FINDINGS: There is limited interpretation of the abdomen and pelvis without administration of intravenous contr ast. Lung bases demonstrate atelectasis. Adrenal glands, spleen and pancreas are unremarkable in shape. There is no CT evidence for cholelith iasis. Hepatic steatosis. Nonobstructing right renal calculi up to 4 mm. Bilateral renal cysts. Gastric distention. Small bowel loops are normal in caliber. Moderate volume stool within the colon. Colonic diverticular disease. Normal appendix. Abdominal aortic atherosclerotic disease. Bladder is partially distended. No free pelvic fluid. No in guinal lymphadenopathy. Left iliac cementoplasty. Fusion at L4, L5. Posterior decompression L4-5. IMPRESSION: 1. Nonobstructing bilateral renal calculi. 2. Hepatic steatosis.Colonic diverticular disease. 3. Gastric distention. 4. Other findings as described.
[2024-10-30 16:29] LABS: Alanine Aminotransferase 75 U/L (7-40); Glucose 219 mg/dL (74-106)
[2024-10-30 16:45] VITALS: BP 134/90; PULSE 96; RESP 17; TEMP 98.1; O2SAT 97
[2024-10-30] MEDS ORDERED: CHL4PW PO (17:42)
== END 2024-10-30 18:04 | disposition home or self-care (01) ==
LOC: ER 15:15
DX: R19.7 Diarrhea, unspecified (principal); E11.9 Type 2 diabetes mellitus without complications; E78.5 Hyperlipidemia, unspecified; I10 Essential (primary) hypertension; Z88.1 Allergy status to other antibiotic agents; Z79.899 Other long term (current) drug therapy; Z79.82 Long term (current) use of aspirin; Z79.52 Long term (current) use of systemic steroids
CPT/HCPCS: 36415; 74176; 80053; 81001; 82947; 83690; 85025; 85379

== ENCOUNTER 2025-04-16 07:23 | Outpatient (CLI) | payer OTHER ==
[~2025-04-16 07:23] MED LIST changes: +CHL4PW PO
[2025-04-16 07:53] LABS: Hematocrit 43.3 % (41.0-53.0); Hemoglobin 14.8 g/dL (13.5-17.5); Mean Corpuscular Hemoglobin 30.4 pg (28.0-32.0); Mean Corpuscular Volume 88.9 fL (80.0-100.0); Nucleated Red Blood Cells % 0.1 %
[2025-04-16 07:58] LABS: Urine Protein, UAD Negative (Negative)
[2025-04-16 08:40] LABS: Microalb/Creat Ratio, Urine < 3.0
[2025-04-16 09:10] LABS: Alanine Aminotransferase 24 U/L (7-40); Albumin 4.3 g/dL (3.2-4.8); Alkaline Phosphatase 113 U/L (46-116); Anion Gap 12 (5-15); BUN/Creatinine Ratio 15.0 (10.0-20.0); Bilirubin, Total 0.7 mg/dL (0.2-1.0); Blood Urea Nitrogen 12 mg/dL (9-23); Calcium 9.4 mg/dL (8.7-10.4); Carbon Dioxide 26 mmol/L (20-31); Chloride 106 mmol/L (98-107); Cholesterol 128 mg/dL (< 200); Potassium 4.0 mmol/L (3.5-5.1); Sodium 144 mmol/L (136-145)
[2025-04-16 09:11] LABS: Glucose 174 mg/dL (74-106); HDL Cholesterol 33 mg/dL (40-59); Triglycerides 241 mg/dL (< 150)
[2025-04-16 11:13] LABS: Prostate Specific Antigen 0.28 ng/mL (0.0-4.0)
[2025-04-16 11:16] LABS: Free T4 (Free Thyroxine) 1.05 ng/dL (0.89-1.76)
[2025-04-16 12:08] LABS: Total Protein 6.8 g/dL (5.7-8.2)
== END 2025-04-16 17:00 | disposition home or self-care (01) ==
LOC: LAB 07:23
PROVIDERS: ATTEND Internal Medicine
DX: E78.2 Mixed hyperlipidemia (principal); E11.69 Type 2 diabetes mellitus with other specified complication; I10 Essential (primary) hypertension; Z00.01 Encounter for general adult medical examination with abnormal findings
CPT/HCPCS: 36415; 80053; 80061; 81001; 82043; 82306; 82570; 83036; 84153; 84439; 84443; 85025